=== PATIENT | male | born 1955 | race Caucasian/White ===

== ENCOUNTER 2017-11-10 01:37 | Inpatient (IN) ==
--- NOTE | 2017-11-10 01:50 | Emergency Department Note ---
Disposition Clinical Impression: Healthcare-associated pneumonia, SVT (supraventricular tachycardia) Sepsis Qualifiers: Sepsis type: sepsis due to unspecified organism Qualified Code(s): A41.9 - Sepsis, unspecified organism Respiratory failure Qualifiers: Chronicity: acute Respiratory failure complication: hypoxia Qualified Code(s): J96.01 - Acute respiratory failure with hypoxia Disposition: Admitted As Inpatient Condition: Good Referrals: Nataly Vera [Primary Care Provider] - Forms: ED Satisfaction Letter Arrhythmia/Palpitations HPI - General Chief Complaint: ED Arrhythmia/Palpitations Stated Complaint: High Heart Rate Time Seen by Provider: 11/10/17 01:45 Source: patient Mode of arrival: EMS Limitations: no limitations Nursing Notes Reviewed: Yes Vital Signs Reviewed: Yes - History of Present Illness HPI Narrative: 62-year-old male history of oxygen-dependent COPD who presents to the ER via EMS with a chief complaint of shortness of breath. Patient reports he was admitted last week for pneumonia at another facility. He went home and states that he was improving but then he started getting short of breath yesterday evening. He reports a productive cough during this time. No fevers or chest pain. He has increasingly worsened in terms of shortness of breath. Upon arrival by squad he was noted to be tachycardic at 214 with SVT. Patient was given 6 mg of adenosine and converted to sinus tachycardia. He was noted to be hypoxic on his usual oxygen requirement. Upon arrival he is hemodynamically stable. Patient placed on oxygen mask due to hypoxia on nasal cannula. He denies any fevers, chills, nausea, vomiting, diarrhea. No history of coronary artery disease. No other complaints. Pt Subjective Complaint: rapid heart beat Onset (ago): day(s) Duration: constant Associated symptoms: Reports: shortness of breath, cough. Denies: chest pain, nausea, vomiting - Related Data Home Medications Medication Instructions Recorded Confirmed Albuterol Sulfate [Ventolin Hfa] 2 puff IH Q4H PRN 04/25/16 05/06/16 Canagliflozin [Invokana] 100 mg PO DAILY 04/25/16 05/06/16 Fluticasone/Salmeterol [Advair 1 puff IH BID 04/25/16 05/06/16 250-50 Diskus] Furosemide [Lasix] 40 mg PO DAILY 04/25/16 05/06/16 Labetalol HCl 600 mg PO BID 04/25/16 05/06/16 Metformin HCl [Glucophage] 1,000 mg PO BID 04/25/16 05/06/16 Potassium Chloride [K-Tab ER] 10 meq PO DAILY 04/25/16 05/06/16 Tiotropium [Spiriva] 18 mcg IH DAILY 04/25/16 05/06/16 Verapamil HCl 360 mg PO DAILY 04/25/16 05/06/16 Insulin Lispro Protamin/Lispro 80 units SQ TID 04/29/16 05/06/16 [Humalog Mix 75-25 Vial] Previous Rx's Medication Instructions Recorded Furosemide [Lasix] 60 mg PO BIDDIURETIC 30 Days 05/04/16 tablet predniSONE [PredniSONE] 30 mg PO DAILY 3 Days tablet 05/04/16 Allergies Allergy/AdvReac Type Severity Reaction Status Date / Time No Known Allergies Allergy Verified 11/10/17 01:38 All systems ED: reviewed and negative except as stated. Constitutional: Denies: fever, chills Cardiovascular: Denies: chest pain Respiratory: Reports: cough, dyspnea, sputum production Gastrointestinal: Denies: abdominal pain, nausea, vomiting Past Medical History - Past Medical History Attestation: Yes The following information was validated with the patient. Source: patient Medical history: Reports: asthma, CHF, COPD, diabetes, hyperlipidemia, hypertension, renal disease, SVT Psychiatric history: Reports: no psych history, other - Social History Smoking Status: Former smoker Smokeless Tobacco Status: No Alcohol use: Reports: none Drug use: Reports: none Physical Exam - General Limitations: no limitations General appearance: alert, in no apparent distress - Head Head exam: atraumatic - Eye Eye exam: Present: normal appearance - ENT ENT exam: normal exam - Neck Neck exam: Present: normal inspection, full ROM - Chest Chest inspection: Present: normal inspection, symmetric chest wall rise - Respiratory Respiratory exam: Present: other (Diminished breath sounds bilaterally). Absent : wheezes, stridor - Cardiovascular Cardiovascular exam: Present: normal rhythm, tachycardia, normal heart sounds - Abdominal Exam Abdominal exam: Present: soft, Non-Tender. Absent: tenderness - Extremities Exam Extremities exam: Present: normal inspection, full ROM - Expanded Upper Extremity Exam Shoulder exam: Present: normal inspection, full ROM Arm exam: Present: normal inspection, full ROM Elbow exam: Present: normal inspection, full ROM Forearm/Wrist exam: Present: normal inspection, full ROM Hand exam: Present: normal inspection, full ROM - Expanded Lower Extremity Exam Hip/Pelvis exam: Present: normal inspection, full ROM Upper leg exam: Present: normal inspection, full ROM Knee exam: Present: normal inspection, full ROM Lower leg exam: Present: normal inspection, full ROM Ankle exam: Present: normal inspection, full ROM Foot/toe exam: Present: normal inspection, full ROM - Neurological Exam Neurological exam: Present: alert, other (GCS 15. Answers questions appropriately.) - Skin Skin exam: Present: warm, dry Course Course Narrative: Patient seen and examined the time of arrival. Noted to be tachycardic at roughly 1:30. Blood pressure stable. He is hypoxic on nasal cannula. Patient switched oxine mask with improvement of his oxygenation. We will get a repeat EKG here as well as chest x-ray, labs including troponin, electrolytes, lactate and blood cultures given his recent hospitalization. - Reevaluation(s) Reevaluation #1: Patient continues to have tachypnea on oxygen mask. Patient placed on BiPAP. Discussed with family bedside reports he was on steroids recently. Patient will be given vancomycin and Zosyn and Levaquin for healthcare associated pneumonia. Patient has received 2 L of IV fluids. His lactate is normal and he shows no evidence of shock on exam. We will admit to the hospitalist service for healthcare associated pneumonia. Vital Signs Temperature 99.4 F 11/10/17 01:41 Pulse Rate 126 11/10/17 01:41 Respiratory Rate 28 11/10/17 01:41 Blood Pressure 131/71 11/10/17 01:41 O2 Sat by Pulse Oximetry 96 11/10/17 01:41 Temperature 99.4 F 11/10/17 01:41 Pulse Rate 119 11/10/17 03:45 Respiratory Rate 26 11/10/17 03:45 Blood Pressure 128/63 11/10/17 03:45 O2 Sat by Pulse Oximetry 95 11/10/17 03:45 Oxygen Delivery Oxygen Delivery Bipap Arrhythmia/Palpitations - MDM Narrative Medical decision making narrative: 62-year-old male presents to the ER via EMS due to shortness of breath. He was recently hospitalized last week for pneumonia. Family states he just went home within the week. EMS found the patient to be in SVT with a rate of 214. He was given 6 mg of adenosine with abatement of his dysrhythmia. No prior history of arrhythmia in the past. He was noted to be hypoxic upon arrival on his usual oxygen requirement. Patient eventually was placed on BiPAP. EKG without ischemic findings here. Chest x-ray with by basilar pneumonia worse on the left. He is noted to have a leukocytosis in the setting of pneumonia as well as recent steroid administration. Lactate normal. Cultures obtained. Started on broad-spectrum antibiotics including vancomycin and Zosyn and Levaquin given his recent hospitalization. Patient was given 20 mL/kg bolus of IV fluids in the department. He is admitted to the hospitalist service in guarded but stable condition. - Lab Data Lab results reviewed: Yes I reviewed the patient's lab results. Result diagrams: 11/10/17 01:55 11/10/17 01:55 Lab Results 11/10/17 11/10/17 11/10/17 Range/Units 01:55 01:55 01:55 WBC 26.4 H (4.3-11.1) K/mcL RBC 5.09 (4.19-5.50) M/mcL Hgb 15.4 (12.9-16.9) g/dL Hct 48.3 (37.5-50.1) % MCV 94.9 (83.0-100.0) fL MCH 30.3 (28.0-33.3) pg MCHC 31.9 (31.6-35.5) g/dL RDW 12.3 (11.5-14.5) % Plt Count 139 L (140-400) K/mcL MPV 9.6 (9.4-12.4) fL Immature Gran % 1.5 (0-4) % Seg Neutrophils % 88.5 % Lymphocytes % 3.1 % Monocytes % 6.6 % Eosinophils % 0.1 % Basophils % 0.2 % Neutrophils # 23.4 H (1.6-8.9) K/mcL Lymphocytes # 0.8 (0.6-4.6) K/mcL Monocytes # 1.7 H (0.0-1.3) K/mcL Eosinophils # 0.0 (0.0-0.6) K/mcL Basophils # 0.1 (0.0-0.2) K/mcL Hyposegmented Neuts Present A (Not Present) Reactive Lymphocytes Present A (Not Present) Smudge Cells Present A (Not Present) Platelet Estimate Normal (Normal) PT 10.6 (9.4-12.1) Seconds INR 1.0 APTT 27.8 (26.0-36.0) Seconds Sodium 138 (136-145) mEq/L Potassium 4.3 (3.5-5.1) mEq/L Chloride 96 L (98-107) mEq/L Carbon Dioxide 30 H (23-29) mEq/L BUN 10 (8-23) mg/dL Creatinine 0.46 L (0.70-1.30) mg/dL Est GFR ( Amer) > 60 (> 60) Est GFR (Non-Af Amer) > 60 (> 60) BUN/Creatinine Ratio 22 (6-26) Glucose 231 H (70-105) mg/dL Calculated Osmolality 292 (280-300) Lactic Acid (0.5-2.2) mmol/L Calcium 9.1 (8.6-10.3) mg/dL Phosphorus 3.1 (2.7-4.5) mg/dL Magnesium 1.9 (1.6-2.6) mg/dL Total Bilirubin 1.2 H (0.3-1.0) mg/dL Direct Bilirubin 0.2 (0.0-0.2) mg/dL Indirect Bilirubin 1.0 (0.0-1.2) mg/dL AST 8 L (13-39) Units/L ALT 11 (7-52) Units/L Alkaline Phosphatase 70 (34-104) Units/L Troponin I (< 0.04) ng/mL B-Natriuretic Peptide (Less than 100) pg/mL Serum Total Protein 6.4 (6.4-8.9) g/dL Albumin 3.8 (3.5-5.7) g/dL Globulin 2.6 (2.4-3.5) g/dL Albumin/Globulin Ratio 1.5 (1.1-2.2) 11/10/17 11/10/17 11/10/17 Range/Units 01:55 01:55 01:55 WBC (4.3-11.1) K/mcL RBC (4.19-5.50) M/mcL Hgb (12.9-16.9) g/dL Hct (37.5-50.1) % MCV (83.0-100.0) fL MCH (28.0-33.3) pg MCHC (31.6-35.5) g/dL RDW (11.5-14.5) % Plt Count (140-400) K/mcL MPV (9.4-12.4) fL Immature Gran % (0-4) % Seg Neutrophils % % Lymphocytes % % Monocytes % % Eosinophils % % Basophils % % Neutrophils # (1.6-8.9) K/mcL Lymphocytes # (0.6-4.6) K/mcL Monocytes # (0.0-1.3) K/mcL Eosinophils # (0.0-0.6) K/mcL Basophils # (0.0-0.2) K/mcL Hyposegmented Neuts (Not Present) Reactive Lymphocytes (Not Present) Smudge Cells (Not Present) Platelet Estimate (Normal) PT (9.4-12.1) Seconds INR APTT (26.0-36.0) Seconds Sodium (136-145) mEq/L Potassium (3.5-5.1) mEq/L Chloride (98-107) mEq/L Carbon Dioxide (23-29) mEq/L BUN (8-23) mg/dL Creatinine (0.70-1.30) mg/dL Est GFR ( Amer) (> 60) Est GFR (Non-Af Amer) (> 60) BUN/Creatinine Ratio (6-26) Glucose (70-105) mg/dL Calculated Osmolality (280-300) Lactic Acid 0.9 (0.5-2.2) mmol/L Calcium (8.6-10.3) mg/dL Phosphorus (2.7-4.5) mg/dL Magnesium (1.6-2.6) mg/dL Total Bilirubin (0.3-1.0) mg/dL Direct Bilirubin (0.0-0.2) mg/dL Indirect Bilirubin (0.0-1.2) mg/dL AST (13-39) Units/L ALT (7-52) Units/L Alkaline Phosphatase (34-104) Units/L Troponin I < 0.03 (< 0.04) ng/mL B-Natriuretic Peptide 30 (Less than 100) pg/mL Serum Total Protein (6.4-8.9) g/dL Albumin (3.5-5.7) g/dL Globulin (2.4-3.5) g/dL Albumin/Globulin Ratio (1.1-2.2) - Radiology Data Radiology results reviewed: Yes I reviewed the patient's radiology results. Chest X-Ray 11/10/17 01:46 IMPRESSION: Bibasilar opacities, greater on the left. Findings are suspicious for pneumonia. D/ / Robin Nayak MD / Robin Nayak MD Interpreting Provider: Robin Nayak MD - EKG Data EKG attestation: Yes I reviewed and interpreted this EKG. EKG results narrative: EKG demonstrates sinus tachycardia with a rate of 127. Normal axis. Normal intervals. Normal R-wave progression. No gross ST elevations or depressions. No acute ischemic findings. No significant changes from previous EKG dated 11/10 with the exception of rate. Critical Care Time Critical Care Time: Yes Total Critical Care Time: 45 Attestation: Critical care performed: Time is exclusive of separately billable procedures. Time includes: direct patient care, patient reassessment, coordination of patient care, interpretation of data (laboratory data, radiology data, and respiratory data), review of patient's medical records, medical consultation and documentation of patient care. Procedures included in critical care time: Procedures excluded from critical care time: S.B.A.R. - S.B.A.R. Situation: Demographics, MOA Background: Presenting Complaint, Relevant PMH, Meds, & Allergies Assessment: Vital Signs, Course and respsone to treatment, Exam Concerns, Patient/Family Expectation, Pertinant Lab Results Recommendation: Barrier(s) to disposition, Recommendation based on pending studies, treatments, or consults S.B.A.R. Report Given to: Dr. Cohen Attestation Statement - Attestation Attestation: I, Chaz Irvin MD, personally evaluated this patient and discussed their management with the resident physician. I reviewed the resident's note and agree with the documented findings, medical decision making, and plan of care. 62-year-old male presents to the emergency department by EMS with a complaint of increased shortness of breath since earlier this evening. He denies any chest pain. EMS reports that on their arrival the patient's heart rate was 214. He received adenosine with resolution of his SVT. On arrival here the heart rate was around 130. Patient has a history of COPD and does wear oxygen at home that 3-1/2 L. Does complain of a productive cough with some greenish brown sputum. No fever. On examination patient is a well-developed well-nourished male in mild to moderate respiratory distress. He is alert. There is no cyanosis or diaphoresis. Chest is nontender to palpation. Breath sounds are markedly decreased bilaterally. No rales or wheezes noted. Heart is regular with a moderate tachycardia. Abdomen is soft and nontender with normal bowel sounds. Patient's oxygen saturation here was 88% on oxygen by nasal cannula. He was placed on a facemask with some improvement into the mid 90s. He continued to be working hard to breathe so he was placed on BiPAP with significant improvement in his symptoms. Labs reviewed. Chest x-ray showed bibasilar airspace disease, left greater than right, concerning for pneumonia. EKG shows a sinus tachycardia with a heart rate of 127. The hospitalist, Dr. Cohen, was consulted and accepted admission of the patient.
[2017-11-10 02:03] LABS: Basophils % 0.2 %; Eosinophils % 0.1 %; Immature Granulocytes % 1.5 % (0-4); Lymphocytes % 3.1 %; Red Cell Distribution Width 12.3 % (11.5-14.5)
[2017-11-10 02:04] LABS: Basophils # 0.1 K/mcL (0.0-0.2); Hematocrit 48.3 % (37.5-50.1); Hemoglobin 15.4 g/dL (12.9-16.9); Lymphocytes # 0.8 K/mcL (0.6-4.6); Mean Corpuscular HGB Conc 31.9 g/dL (31.6-35.5); Mean Corpuscular Hemoglobin 30.3 pg (28.0-33.3); Mean Corpuscular Volume 94.9 fL (83.0-100.0); Mean Platelet Volume 9.6 fL (9.4-12.4); Monocytes % 6.6 %; Neutrophils # 23.4 K/mcL (1.6-8.9); Platelet Count 139 K/mcL (140-400); Red Blood Count 5.09 M/mcL (4.19-5.50); Segmented Neutrophils % 88.5 %
[2017-11-10 02:06] LABS: Monocytes # 1.7 K/mcL (0.0-1.3)
[2017-11-10] MEDS ORDERED: Vancomycin 1,250 MG in D5% in Water 250 ML IVPB ONE (02:07)
[2017-11-10] MEDS ORDERED: Levofloxacin 750 MG/150 ML 750 MG/150 ML BAG IVPB ONE (02:07)
[2017-11-10] MEDS ORDERED: Piperacillin/Tazobactam 3.375 GM in Water for inj. (sterile) 20 ML IVP ONE (02:07)
[2017-11-10 02:12] LABS: Prothrombin Time 10.6 Seconds (9.4-12.1)
[2017-11-10 02:14] LABS: Activated Partial Thrombo Time 27.8 Seconds (26.0-36.0)
[2017-11-10] MEDS: 0.9 % Sodium Chloride 1,000 ML IVC SCH ×2 (02:21→02:50)
[2017-11-10 02:24] LABS: Alanine Aminotransferase 11 Units/L (7-52); Albumin 3.8 g/dL (3.5-5.7); Albumin/Globulin Ratio 1.5 (1.1-2.2); Alkaline Phosphatase 70 Units/L (34-104); Aspartate Amino Transferase 8 Units/L (13-39); BUN/Creatinine Ratio 22 (6-26); Bilirubin,Direct 0.2 mg/dL (0.0-0.2); Bilirubin,Total 1.2 mg/dL (0.3-1.0); Blood Urea Nitrogen 10 mg/dL (8-23); Calcium 9.1 mg/dL (8.6-10.3); Carbon Dioxide 30 mEq/L (23-29); Chloride 96 mEq/L (98-107); Globulin 2.6 g/dL (2.4-3.5); Glucose 231 mg/dL (70-105); Magnesium 1.9 mg/dL (1.6-2.6); Osmolality,Calculated 292 (280-300); Phosphorous 3.1 mg/dL (2.7-4.5); Potassium 4.3 mEq/L (3.5-5.1); Sodium 138 mEq/L (136-145); Total Protein 6.4 g/dL (6.4-8.9); eGFR For African Americans > 60 (> 60); eGFR For Non-African Americans > 60 (> 60)
[2017-11-10 02:35] LABS: Platelet Estimate Normal (Normal); Reactive Lymphocytes Present (Not Present); Smudge Cells Present (Not Present)
[2017-11-10] MEDS ORDERED: Levalbuterol Neb 1.25 MG/3 ML IH PRN (04:57)
[2017-11-10] MEDS: Levalbuterol Neb 1.25 MG/3 ML IH SCH ×2 (05:05→10:56)
[2017-11-10] MEDS ORDERED: *HR* Dextrose 50 % in Water (Syg) 50 ML SYRINGE IVP PRN (05:40)
[2017-11-10] MEDS ORDERED: Naloxone 0.4 MG/ML INJ IVP PRN (05:40)
[2017-11-10] MEDS ORDERED: D5% in Water 1,000 ML IVC PRN (05:40)
[2017-11-10] MEDS ORDERED: Dextrose Gel 15 GM/37.5 ML TUBE PO PRN ×2 (05:40)
[2017-11-10 05:48] LABS: ABG Base Excess 2 mEq/L (-2 to 3); ABG HCO3 33 mEq/L (21-27); ABG Oxygen Saturation 94 % (95-98); ABG PCO2 82 mmHg (35-45); ABG PH 7.21 pH Units (7.32-7.45); ABG PO2 91 mmHg (85-104); ABG TCO2 36 mEq/L (20-26)
--- NOTE | 2017-11-10 05:58 | Internal Med History&Physical ---
Date of Encounter: 11/10/17 Time of Encounter: 05:15 Assessment and Plan (1) Healthcare-associated pneumonia Current visit: Yes Status: Acute 1. I requested blood culture be obtained in ER when they called. 2. Will try to collect sputum culture. 3. Continue IV Vancomycin, Zosyn, and Levaquin. 4. Will schedule Xopenex aerosols and IV steroids for AECOPD. (2) SVT (supraventricular tachycardia) Current visit: Yes Status: Acute 1. Patient responded to Adenosine by EMS. 2. Awaiting verification of home meds at which point they should be resumed. 3. Monitor electrolytes and correct as needed. 4. May need BB and/or Cardizem if he has more runs. 5. Cycle troponins and EKG's. (3) Acute on chronic respiratory failure with hypercapnia Current visit: No Status: Acute 1. I spoke with RT, and they are making changes to his BiPap settings. 2. Repeat ABG in 1 hour. 3. If he fails Bipap and/or decompensates, he will need intubated and mechanically ventilated. (4) DVT prophylaxis Current visit: Yes Status: Acute 1. Heparin SQ. Internal Medicine - H&P: HPI Chief complaint: SOB; palpitations Admitted From: Emergency Dept Plans for Post Hospital Care: Home History of present illness: Mr. Miller is a 62 year old male who presents to the ER tonight with complaints of profound dyspnea, palpitations, and racing heartbeats. He called the squad for complaints of having significant difficulty breathing and racing heartbeats. An EKG was performed by EMS, and he was noted to have SVT with a heart rate in the 200s. He was apparently given a dose of adenosine and brought to the ER. He slowed down and converted with adenosine. Workup in the ER revealed patient to have evidence of pneumonia and respiratory failure. He was started on antibiotics and aerosols and placed on BiPAP. He was subsequently admitted to the hospitalist service. Upon my assessment of the patient, he is in moderate distress, but he says he is tolerating the BiPAP fairly well. He states he feels better on the BiPAP machine. He denies any fevers, nausea, vomiting, diarrhea, or myalgias. He has had some shakes and chills,. He has not been able to produce any purulent sputum upon coughing. He is wheezing audibly. He denies any ill contacts with friends or neighbors or family members. Of note, patient was just hospitalized last week at [facility] for pneumonia. Past Med Surg Social Fam HX - Past Medical History Attestation: Yes The following information was validated with the patient. Source: patient, old records reviewed Medical history: asthma, CHF, COPD, diabetes, hyperlipidemia, hypertension, renal disease, SVT Psychiatric history: no psych history, other - Past Surgical History Surgical History: other, AICD - Social History Smoking Status: Former smoker Smokeless Tobacco Status: No Alcohol use: none Drug use: none Current living situation: Home, With Family Activity Level: Independent ambulation - Family History Mother Hx Family Endocrine Disorder: Yes Father History Unknown: Yes Internal Medicine - H&P: Meds Albuterol Sulfate [Ventolin Hfa] 2 puff IH Q4H PRN 04/25/16 [History] Canagliflozin [Invokana] 100 mg PO DAILY 04/25/16 [History] Fluticasone/Salmeterol [Advair 250-50 Diskus] 1 puff IH BID 04/25/16 [History] Furosemide [Lasix] 40 mg PO DAILY 04/25/16 [History] Labetalol HCl 600 mg PO BID 04/25/16 [History] Metformin HCl [Glucophage] 1,000 mg PO BID 04/25/16 [History] Potassium Chloride [K-Tab ER] 10 meq PO DAILY 04/25/16 [History] Tiotropium [Spiriva] 18 mcg IH DAILY 04/25/16 [History] Verapamil HCl 360 mg PO DAILY 04/25/16 [History] Insulin Lispro Protamin/Lispro [Humalog Mix 75-25 Vial] 80 units SQ TID [History] Furosemide [Lasix] 60 mg PO BIDDIURETIC 30 Days tablet 05/04/16 [Rx] predniSONE [PredniSONE] 30 mg PO DAILY 3 Days tablet 05/04/16 [Rx] 3 Allergy/AdvReac Type Severity Reaction Status Date / Time No Known Allergies Allergy Verified 11/10/17 01:38 - Constitutional Constitutional: chills, night sweats, weakness, no fever(s) - EENT Eyes: no blurry vision, no change in vision Ears: no ear pain, no tinnitus Nose, mouth and throat: no nasal congestion, no sinus pressure, no sore throat - Cardiovascular Cardiovascular ROS IM: diaphoresis, dyspnea, dyspnea on exertion, palpitations, no chest pain, no paroxysmal nocturnal dyspnea, no syncope - Respiratory Respiratory: cough, dyspnea, dyspnea on exertion, wheezing, chest congestion, excessive phlegm production, change in phlegm color, no hemoptysis - Gastrointestinal Gastrointestinal: nausea, no abdominal pain, no diarrhea, no hematemesis, no hematochezia, no melena, no vomiting - Genitourinary Genitourinary ROS male: no dysuria, no flank pain, no hematuria - Musculoskeletal Musculoskeletal ROS IM: muscle weakness, no arthralgias, no muscle cramps, no myalgias - Integumentary Integumentary IM: no rash, no jaundice - Neurological Neurological ROS: no dizziness, no focal weakness, no frequent falls, no headache(s) - Psychiatric Psychiatric: no anxiety, no depression - Endocrine Endocrine IM: no polydipsia, no polyuria - Hematologic/Lymphatic Hematologic/Lymphatic: easy bruising, no lymphadenopathy - Allergic/Immunologic Allergic/Immunologic: wheezing, no GI upset with certain foods - Constitutional Vitals: Temp Pulse Resp BP Pulse Ox 97.4 F L 130 18 140/66 94 11/10/17 04:45 11/10/17 04:45 11/10/17 05:07 11/10/17 04:45 11/10/17 05:07 General appearance: Present: cooperative, A&O X 3, pleasant, severe distress ( respiratory), answers questions appropriately - Head Head exam: Present: atraumatic, normal inspection - Eye Eye exam: Present: EOMI, normal appearance, PERRL. Absent: scleral icterus Pupils: Present: normal accommodation - ENT ENT exam: Present: mucous membranes dry, normal exam - Neck Neck exam general surgery: Present: full ROM, supple. Absent: tenderness, nuchal rigidity - Respiratory Respiratory exam: Present: prolonged expiratory phase (severely prolonged), rales, respiratory distress, rhonchi, wheezes, tachypnea. Absent: accessory muscle use, CTAB - Cardiovascular Cardiovascular exam: Present: distant heart sounds, +S1, +S2, tachycardia. Absent: diastolic murmur, systolic murmur - GI/Abdominal GI/Abdominal exam: Present: normal bowel sounds, soft. Absent: hepatomegaly, mass, splenomegaly, tenderness - Extremities Exam Extremities exam: Present: full ROM. Absent: calf tenderness, joint swelling, normal capillary refill - Back Exam Back exam: Absent: CVA tenderness (L), CVA tenderness (R) - Neurological Exam Neurological exam: Present: alert, CN II-XII intact, oriented X3, no focal deficits - Psychiatric Psychiatric exam: Present: normal affect, normal mood - Skin Skin exam: Present: dry, warm. Absent: rash Internal Med - H&P Results - Labs CBC & Chem 7: 11/10/17 01:55 11/10/17 01:55 - ABG Interpretation Interpretation: ABG interpreted by me ABG results: 11/10/17 05:34 ABG pH 7.21 L ABG pCO2 82 H* ABG pO2 91 ABG HCO3 33 H ABG Total CO2 36 H ABG O2 Saturation 94 L ABG Base Excess 2 Interpretation: metabolic acidosis - EKG Data -: EKG Interpreted by Myself - EKG Data EKG comments: 11/10/17 06:05 Sinus tachycardia; earlier EKG revealed SVT.
[2017-11-10] MEDS ORDERED: Vancomycin 1,250 MG in D5% in Water 250 ML IVPB SCH (06:00)
[2017-11-10] MEDS: *HR* Heparin 5,000 UNIT/ML VIAL SQ SCH ×2 (06:51→16:18)
[2017-11-10 07:02] LABS: ABG Base Excess 5 mEq/L (-2 to 3); ABG HCO3 35 mEq/L (21-27); ABG Oxygen Saturation 91 % (95-98); ABG PCO2 78 mmHg (35-45); ABG PH 7.26 pH Units (7.32-7.45); ABG PO2 72 mmHg (85-104); ABG TCO2 37 mEq/L (20-26); Blood Gas Respiration Rate 10; Blood Gas VT 550 cc
[2017-11-10] MEDS ORDERED: *HR* Adenosine 6 MG/2 ML VIAL IVP ONE ×3 (07:50→08:04)
[2017-11-10] MEDS ORDERED: 0.9 % Sodium Chloride 1,000 ML ONE (07:55)
[2017-11-10] MEDS ORDERED: methylPREDNISolone 125 MG/2 ML VIAL IVP SCH (08:00)
[2017-11-10] MEDS ORDERED: *HR* Metoprolol 5 MG/5 ML VIAL IVP ONE ×2 (08:04→08:19)
[2017-11-10] MEDS ORDERED: *HR* LORazepam 2 MG/ML VIAL ONE (08:11)
--- NOTE | 2017-11-10 08:19 | Event Note ---
Date of Encounter: 11/10/17 Time of Encounter: 08:15 I was called by the patient's nurse this morning as he had sustained SVT on the monitor. Anywhere between 180 to 220s. The patient was admitted overnight for healthcare associated pneumonia and COPD exacerbation and has been maintained on BiPAP. He is chronically O2 dependent with about 3.5 L. When I went to evaluate the patient has blood pressure was not elevated with a systolic in the 180s and diastolic in the 100. The patient was given 6 mg of IV adenosine followed by 12 mg of IV adenosine with no response. He was eventually given 5 mg of Lopressor which brought down his heart rate to the low 100s-110s. I consulted with cardiology. We will give the patient 500 mL bolus. I have asked the pharmacy to verify his medications as it seems that he is taking a beta jeanmarie at home. We will restart home medications after they are verified. Unfortunately 5 minutes after I had left the room, the patient again went into SVT with similar rates. I gave him 5 more milligrams of IV Lopressor which did not help. I gave 2 consecutive 5 mg of IV Cardizem and after the second dose this week he broke. Dr. Jean from cardiology had just walked in right after the patient had converted to sinus rhythm with a rate in the 90s. He will be following along as a outbound sales consultant. I do not appreciate him come in to help out.
[2017-11-10] MEDS: Insulin LISPRO 300 UNITS/3 ML VIAL SQ SCH ×3 (09:42→16:18)
[2017-11-10 11:22] LABS: ABG Base Excess 3 mEq/L (-2 to 3); ABG HCO3 34 mEq/L (21-27); ABG Oxygen Saturation 90 % (95-98); ABG PCO2 86 mmHg (35-45); ABG PH 7.21 pH Units (7.32-7.45); ABG PO2 75 mmHg (85-104); ABG TCO2 37 mEq/L (20-26)
--- NOTE | 2017-11-10 11:31 | Pulmonology Consult Note ---
Date of Encounter: 11/10/17 Time of Encounter: 11:30 Assessment and Plan (1) Acute and chronic respiratory failure with hypoxia Current Visit: No Status: Acute Patient has acute on chronic hypoxic and hypercapnic respiratory failure now currently AVAPS with Pressure Support of 10 with Target Tidal volume around 600 ml to keep the FIO2 with aiming stats around 92% (2) Acute on chronic respiratory failure with hypercapnia Current Visit: No Status: Acute With the initial bicarbonate around 30 confirms that he has acute on chronic hypercapnic respiratory failure most likely due to combination of V/Q mismatch and space ventilation the gas exchange improved initially with mentation , the repeat gas showed some worsening hypercarbia most likely due to bronchospasm because the tidal volume is not effectively delivered that is the main reason will add Scheduled Duonebs Q4 with Albuterol Q4 prn will repeat the blood gas after bronchodilator treatment if the mentation improves with improvement with adequate compensated gas exchange will leave him to 2N if any signs of metabolic or clinical decline will shift him to the ICU . (3) Acute exacerbation of chronic obstructive airways disease Current Visit: No Status: Acute Patient presenting with acute exacerbation of COPD most likely secondary to bacterial pneumonia of unspecified organism will send blood and sputum cultures . Since his recent hospitalization will cover him with broad spectrum antibiotics . agree with steroids , i added scheduled BOOGIE/MARTIN with BOOGIE prn will need to monitor his heart rate . Wonder he is aspirating will need full swallow evaluation when he is stable . If clinically not improving will get a CTA as the kidney function is stable for now . But wont shift him now for any imaging as his respiratory status is borderline. (4) Pneumonia Current Visit: Yes Status: Acute Can be due to aspiration suspected bacterial pneumonia agree with broad spectrum antibiotics will follow with blood culture and sputum cultures . Will get respiratory infection panel to rule out for any viral pneumonia . Qualifiers: Pneumonia type: due to unspecified organism Laterality: left Lung location: lower lobe of lung Qualified Code(s): J18.1 - Lobar pneumonia, unspecified organism (5) SVT (supraventricular tachycardia) Current Visit: Yes Status: Acute Most likely secondary to COPD exacerbation appreciate cardiology input. History of Present Illness Consult date: 11/10/17 Requesting physician: Kristin Austin Reason for consult: dyspnea, cough, COPD Chief complaint: Dyspnea History of present illness: 62 year old male with past medical history of COPD looks like he is O2 dependent no PFTS on file not established with [place] [facility] patient is on BIPAP drowsy as he got some ativan not able to participate in history most of the history was taken from the chart review apparently patient was treated for pneumonia in a OSH recently, was discharged home was getting better initially then his shortness of breadth got worsened over couple of days with some cough and sputum production no chest pain , patient was brought in by EMS was hypoxic and hypercarbic was in SVT , the ABG showed acute on chronic hypercapnic and hypoxic respiratory failure was put on BIPAP admitted to [facility] Pulmonary was consulted for further management and triage whether patient will need ICU care or not . Past Med Surg Social Fam HX - Past Medical History Medical history: asthma, CHF, COPD, diabetes, hyperlipidemia, hypertension, renal disease, SVT Psychiatric history: no psych history, other - Past Surgical History Surgical History: other, AICD - Social History Smoking Status: Former smoker Smokeless Tobacco Status: No Alcohol use: none Drug use: none - Family History Father History Unknown: Yes Mother Hx Family Endocrine Disorder: Yes Medications and Allergies Albuterol Sulfate [Ventolin Hfa] 2 puff IH Q4H PRN 04/25/16 [History] Canagliflozin [Invokana] 300 mg PO DAILY 04/25/16 [History] Fluticasone/Salmeterol [Advair 250-50 Diskus] 1 puff IH BID 04/25/16 [History] Furosemide [Lasix] 40 mg PO BID 04/25/16 [History] Metformin HCl [Glucophage] 1,000 mg PO BID 04/25/16 [History] Potassium Chloride [K-Tab ER] 10 meq PO DAILY 04/25/16 [History] Verapamil HCl 360 mg PO DAILY 04/25/16 [History] Aclidinium [place] [Tudorza Pressair] 1 puff IH DAILY 11/10/17 [History] Apixaban [Eliquis] 5 mg PO BID 11/10/17 [History] Atorvastatin [Lipitor] 80 mg PO HS 11/10/17 [History] Glimepiride [Amaryl] 1 mg PO DAILY 11/10/17 [History] Insulin Glargine,Hum.rec.anlog [Maksim Echeverria] 60 units SQ HS 11/10/17 [ History] Ipratropium/Albuterol Neb [Duoneb] 1 inh AER Q4HWA 11/10/17 [History] Lisinopril-HCTZ 10-12.5 [Prinzide 10-12.5] 1 tab PO DAILY 11/10/17 [History] Metoprolol [Lopressor] 50 mg PO BID 11/10/17 [History] 3 Allergy/AdvReac Type Severity Reaction Status Date / Time No Known Allergies Allergy Verified 11/10/17 01:38 ROS unobtainable: due to mental status All Systems: A 10-system review of systems was performed and is negative for pertinent findings except as documented above in the HPI. Physical Examination Vital Signs: Vital Signs, Last 4 Hours Pulse Resp BP Pulse Ox 11/10/17 10:56 15 93 11/10/17 09:57 101 32 124/77 92 11/10/17 09:34 107 29 119/65 93 11/10/17 07:37 172 General appearance: other (mild respiratory distress ) Effort: mildly labored Auscultation: bilateral: diminished breath sounds, wheezes unable to assess due to mental status, other (Patient is arousable on and off followed commands ) Results - Laboratory Findings CBC and BMP: 11/10/17 01:55 11/10/17 01:55 ABG ABG pH 7.21 pH Units (7.32-7.45) L 11/10/17 11:16 ABG pCO2 86 mmHg (35-45) H* 11/10/17 11:16 ABG pO2 75 mmHg (85-104) L 11/10/17 11:16 ABG O2 Saturation 90 % (95-98) L 11/10/17 11:16 PT/INR, D-dimer PT 10.6 Seconds (9.4-12.1) 11/10/17 01:55 Abnormal lab findings: Abnormal lab results WBC 26.4 K/mcL (4.3-11.1) H 11/10/17 01:55 Plt Count 139 K/mcL (140-400) L 11/10/17 01:55 Neutrophils # 23.4 K/mcL (1.6-8.9) H 11/10/17 01:55 Monocytes # 1.7 K/mcL (0.0-1.3) H 11/10/17 01:55 Hyposegmented Neuts Present (Not Present) A 11/10/17 01:55 Reactive Lymphocytes Present (Not Present) A 11/10/17 01:55 Smudge Cells Present (Not Present) A 11/10/17 01:55 ABG pH 7.21 pH Units (7.32-7.45) L 11/10/17 11:16 ABG pCO2 86 mmHg (35-45) H* 11/10/17 11:16 ABG pO2 75 mmHg (85-104) L 11/10/17 11:16 ABG HCO3 34 mEq/L (21-27) H 11/10/17 11:16 ABG Total CO2 37 mEq/L (20-26) H 11/10/17 11:16 ABG O2 Saturation 90 % (95-98) L 11/10/17 11:16 Chloride 96 mEq/L (98-107) L 11/10/17 01:55 Carbon Dioxide 30 mEq/L (23-29) H 11/10/17 01:55 Creatinine 0.46 mg/dL (0.70-1.30) L 11/10/17 01:55 Glucose 231 mg/dL (70-105) H 11/10/17 01:55 POC Glucose 166 (58-89) H 11/10/17 07:24 Total Bilirubin 1.2 mg/dL (0.3-1.0) H 11/10/17 01:55 AST 8 Units/L (13-39) L 11/10/17 01:55 - Clinical Findings Intake & Output: Intake & Output 11/09/17 11/10/17 11/10/17 23:59 07:59 15:59 Intake Total 500 / 500 Output Total 300 / 640 300 / 300 Balance -300 / 1780 200 / 200 Consult Discharge Plan - Plan Referrals: Nataly Vera [Primary Care Provider] - 11/24/17 8:40 am
[2017-11-10] MEDS: Ipratropium/Albuterol Neb 3 ML IH SCH ×3 (11:36→20:46)
--- NOTE | 2017-11-10 11:37 | Cardiology Consult Note ---
Date of Encounter: 11/10/17 Time of Encounter: 11:35 Assessment and Plan (1) PSVT (paroxysmal supraventricular tachycardia) Current Visit: Yes Status: Acute PSVT in the setting of acute on chronic respiratory insufficiency. Likely acute exacerbation of COPD and possible pneumonia as well. Patient demonstrated similar findings in 2016, at which time he had SVT in the setting of similar pulmonary issues. Recommend Cardizem CD 120 mg daily. Recommend aspirin for primary prevention. Hopefully, he will have less SVT as pulmonary status improves. Discussion w patient/family: The assessment and plan as outlined above was discussed with the patient and/or family members who expressed understanding and agreement. All questions were answered. Thank you for involving us in the care of your patient. Please call with any questions. History of Present Illness Consult date: 11/10/17 Requesting physician: Kristin Austin Consult reason: SVT Chief complaint: Dyspnea History of present illness: Mr. Miller is a 62 year old male who presented to the ER with a chief complaint dyspnea. Recently discharged from another facility after being treated for pneumonia. Noted to have SVT in route to the hospital. He was given 6 mg of adenosine with conversion to sinus tachycardia. This morning, patient reportedly developed SVT again. He was given 6 mg followed by 12 mg of adenosine without success. After additional Lopressor and Cardizem, patient converted to sinus tachycardia. Upon my evaluation, patient with noticeable dyspnea. He is currently on CPAP. Difficult to obtain history - given Ativan, somewhat somnolent. Blood pressure appears to be stable. Past Med Surg Social Fam HX - Past Medical History Medical history: asthma, CHF, COPD, diabetes, hyperlipidemia, hypertension, renal disease, SVT Psychiatric history: no psych history, other - Past Surgical History Surgical History: other, AICD - Social History Smoking Status: Former smoker Smokeless Tobacco Status: No Alcohol use: none Drug use: none - Family History Father History Unknown: Yes Mother Hx Family Endocrine Disorder: Yes Medications and Allergies Albuterol Sulfate [Ventolin Hfa] 2 puff IH Q4H PRN 04/25/16 [History] Canagliflozin [Invokana] 100 mg PO DAILY 04/25/16 [History] Fluticasone/Salmeterol [Advair 250-50 Diskus] 1 puff IH BID 04/25/16 [History] Furosemide [Lasix] 40 mg PO DAILY 04/25/16 [History] Labetalol HCl 600 mg PO BID 04/25/16 [History] Metformin HCl [Glucophage] 1,000 mg PO BID 04/25/16 [History] Potassium Chloride [K-Tab ER] 10 meq PO DAILY 04/25/16 [History] Tiotropium [Spiriva] 18 mcg IH DAILY 04/25/16 [History] Verapamil HCl 360 mg PO DAILY 04/25/16 [History] Insulin Lispro Protamin/Lispro [Humalog Mix 75-25 Vial] 80 units SQ TID [History] Furosemide [Lasix] 60 mg PO BIDDIURETIC 30 Days tablet 05/04/16 [Rx] predniSONE [PredniSONE] 30 mg PO DAILY 3 Days tablet 05/04/16 [Rx] 3 Allergy/AdvReac Type Severity Reaction Status Date / Time No Known Allergies Allergy Verified 11/10/17 01:38 ROS unobtainable: other All Systems Review: Patient given sedation, somewhat somnolent. - Cardiovascular Cardiovascular: as per HPI - Respiratory Respiratory: dyspnea Physical Examination Vital Signs, Last 4 Hours Pulse Resp BP Pulse Ox 11/10/17 10:56 15 93 11/10/17 09:57 101 32 124/77 92 11/10/17 09:34 107 29 119/65 93 11/10/17 07:37 172 General: Other (Somnolent.) HEENT: Atraumatic, Normocephaly, Mucus Membranes Moist Neck: No JVD, Normal carotid pulses Cardiac: Other (Tachycardic, distant. No appreciable murmurs.) Lungs: Other (Shallow, scattered rhonchi.) Neuro: Other (Somnolent.) Abdomen: Soft, Non-Tender Skin: No rashes noted on visualized skin Musculoskeletal: No Chest Wall Tenderness Extremities: No Clubbing, No Cyanosis, No Edema Results 11/10/17 01:55 11/10/17 01:55 Lab Results 11/10/17 06:31 Troponin I 0.03 - Imaging and Cardiology Echo: report reviewed Consult Discharge Plan - Plan Referrals: Nataly Vera [Primary Care Provider] - 11/24/17 8:40 am
[2017-11-10] MEDS: Diltiazem CD (24hr) 120 MG CAPSULE PO SCH (13:54)
[2017-11-10] MEDS: Vancomycin 1,250 MG in D5% in Water 250 ML IVPB SCH (13:54)
--- NOTE | 2017-11-10 14:37 | Electrocardiograph Report ---
[place] [id number] Test Date: 2017-11-10 Pat Name: Armen Miller Department: [id number] Room: 2N05 Gender: M Dancing Teacher: : 1955 Requested By: Grant Fair Order Number: [id number] Reading MD: Claudio Jean DO Measurements Intervals [place] Rate: 127 P: 47 CA: 128 QRS: 51 QRSD: 87 T: 108 QT: 335 QTc: 410 Interpretive Statements SINUS TACHYCARDIA NONSPECIFIC ST-T CHANGES Electronically Signed On 11-10-2017 14:35:40 EST by Claudio Jean DO
[2017-11-10 15:49] LABS: ABG Base Excess 0 mEq/L (-2 to 3); ABG HCO3 28 mEq/L (21-27); ABG Oxygen Saturation 94 % (95-98); ABG PCO2 62 mmHg (35-45); ABG PH 7.27 pH Units (7.32-7.45); ABG PO2 83 mmHg (85-104); ABG TCO2 30 mEq/L (20-26)
[2017-11-10] MEDS: methylPREDNISolone 125 MG/2 ML VIAL IVP SCH (15:53)
[2017-11-10] MEDS: Furosemide 40 MG TABLET PO SCH (15:54)
[2017-11-10] MEDS ORDERED: Perflutren Lipid Microsphere 1.3 ML in 0.9 % Sodium Chloride 8.7 ML IVP ONE (21:47)
[2017-11-11] MEDS: methylPREDNISolone 125 MG/2 ML VIAL IVP SCH ×3 (00:16→15:25)
[2017-11-11] MEDS: Ipratropium/Albuterol Neb 3 ML IH SCH ×7 (00:20→23:02)
[2017-11-11 03:39] LABS: Basophils % 0.1 %; Hematocrit 41.9 % (37.5-50.1); Hemoglobin 12.8 g/dL (12.9-16.9); Immature Granulocytes % 1.2 % (0-4); Lymphocytes # 0.6 K/mcL (0.6-4.6); Lymphocytes % 3.5 %; Mean Corpuscular HGB Conc 30.5 g/dL (31.6-35.5); Mean Corpuscular Hemoglobin 29.6 pg (28.0-33.3); Mean Platelet Volume 9.7 fL (9.4-12.4); Monocytes # 0.4 K/mcL (0.0-1.3); Monocytes % 2.8 %; Neutrophils # 14.6 K/mcL (1.6-8.9); Platelet Count 123 K/mcL (140-400); Red Blood Count 4.32 M/mcL (4.19-5.50); Red Cell Distribution Width 12.5 % (11.5-14.5); Segmented Neutrophils % 92.4 %
[2017-11-11 04:24] LABS: Alanine Aminotransferase 9 Units/L (7-52); Albumin 3.2 g/dL (3.5-5.7); Albumin/Globulin Ratio 1.3 (1.1-2.2); Alkaline Phosphatase 58 Units/L (34-104); Aspartate Amino Transferase 7 Units/L (13-39); BUN/Creatinine Ratio 35 (6-26); Bilirubin,Total 0.7 mg/dL (0.3-1.0); Blood Urea Nitrogen 17 mg/dL (8-23); Calcium 8.8 mg/dL (8.6-10.3); Carbon Dioxide 30 mEq/L (23-29); Chloride 100 mEq/L (98-107); Chol/HDL Ratio 2.2 (0-4.9); Cholesterol 112 mg/dL (< 200); Globulin 2.5 g/dL (2.4-3.5); Glucose 200 mg/dL (70-105); HDL Cholesterol 50 mg/dL (40-59); LDL Cholesterol,Calculated 47 mg/dL (0-99); Magnesium 2.2 mg/dL (1.6-2.6); Osmolality,Calculated 297 (280-300); Potassium 4.4 mEq/L (3.5-5.1); Sodium 140 mEq/L (136-145); Total Protein 5.7 g/dL (6.4-8.9); Triglycerides 73 mg/dL (< 150); eGFR For African Americans > 60 (> 60); eGFR For Non-African Americans > 60 (> 60)
[2017-11-11] MEDS: Vancomycin 1,250 MG in D5% in Water 250 ML IVPB SCH ×2 (05:16→15:25)
[2017-11-11] MEDS: *HR* Heparin 5,000 UNIT/ML VIAL SQ SCH ×2 (05:17→17:04)
[2017-11-11 07:10] LABS: Adenovirus Not Detected (Not Detect); Bordetella Pertussis Not Detected (Not Detect); Chlamydophila pneumoniae Not Detected (Not Detect); Coronavirus 229E Not Detected (Not Detect); Coronavirus HKU1 ***DETECTED*** (Not Detect); Coronavirus NL63 Not Detected (Not Detect); Coronavirus OC43 Not Detected (Not Detect); Human Metapneumovirus Not Detected (Not Detect); Human Rhinovirus/Enterovirus Not Detected (Not Detect); Influenza A Subtype 2009 H1 Not Detected (Not Detect); Influenza A Untypeable Not Detected (Not Detect); Influenza B Not Detected (Not Detect); Mycoplasma pneumoniae Not Detected (Not Detect); Parainfluenza Virus 1 Not Detected (Not Detect); Parainfluenza Virus 2 Not Detected (Not Detect); Parainfluenza Virus 3 Not Detected (Not Detect); Parainfluenza Virus 4 Not Detected (Not Detect); Respiratory Syncytial Virus Not Detected (Not Detect)
[2017-11-11] MEDS: Diltiazem CD (24hr) 120 MG CAPSULE PO SCH (08:48)
[2017-11-11] MEDS: Furosemide 40 MG TABLET PO SCH ×2 (08:48→17:04)
[2017-11-11] MEDS: Aspirin Enteric Coated 81 MG Tablet PO SCH (08:48)
[2017-11-11] MEDS: Levofloxacin 750 MG/150 ML 750 MG/150 ML BAG IVPB SCH (08:49)
[2017-11-11] MEDS: Insulin LISPRO 300 UNITS/3 ML VIAL SQ SCH ×3 (08:50→17:03)
--- NOTE | 2017-11-11 11:01 | Internal Med Progress Note ---
Date of Encounter: 11/11/17 Time of Encounter: 10:59 - Assessment and plan (1) Healthcare-associated pneumonia Current Visit: Yes Status: Acute Assessment and plan: Continue with vancomycin and Zosyn. Follow up on cultures. Wean down oxygen as tolerated. (2) SVT (supraventricular tachycardia) Current Visit: Yes Status: Acute Assessment and plan: Likely exacerbated by pulmonary issues. Seems to be regular and sinus with rate controlled now. Cardiology is following. Echo results noted. Continue Cardizem and beta jeanmarie. (3) COPD exacerbation Current Visit: No Status: Acute Assessment and plan: Appreciate pulmonary's help. The patient is on IV steroids. Continue with nebulizers. We do not oxygen as tolerated. (4) Type 2 diabetes mellitus Current Visit: No Status: Chronic Assessment and plan: Continue insulin sliding scale. We will give 10 units of Levemir this morning given glucose being uncontrolled. This is likely exacerbated by being on steroids. continue with Accu-Cheks Qualifiers: Diabetes mellitus complication status: without complication Diabetes mellitus care home insulin use: with care home use Qualified Code(s): E11.9 - Type 2 diabetes mellitus without complications; Z79.4 - terminal gauger supervisor (current) use of insulin; Z79.4 - terminal gauger supervisor (current) use of insulin; Z79.4 - terminal gauger supervisor ( current) use of insulin; Z79.4 - terminal gauger supervisor (current) use of insulin (5) Chronic diastolic heart failure Current Visit: Yes Status: Acute Assessment and plan: Not in exacerbation. continue with lasix 40 mg BID (6) DVT prophylaxis Current Visit: Yes Status: Acute Assessment and plan: Heparin subcutaneous - Subjective Interval history: Patient was seen and examined. He is afebrile. Still requiring high oxygen needs. He was admitted one day 1 with dyspnea palpitations. He is being treated for healthcare associated pneumonia. He went into SVT multiple times requiring adenosine Lopressor as well as Cardizem. Cardiology is following him. He remains unstable. He has been afebrile. No chest pain. - Constitutional Vitals: Temp Pulse Resp BP Pulse Ox 98.1 F 78 20 121/60 93 11/11/17 07:41 11/11/17 08:40 11/11/17 10:55 11/11/17 07:41 11/11/17 10:55 General appearance: Present: cooperative, A&O X 3, pleasant, severe distress ( respiratory), answers questions appropriately Exam: GEN: NAD CVS: RRR. S1, S2, No m/r/g RESP: Diminished with coarse breath sounds ABD: Soft, NT, ND, +BS EXT: No edema. 2+ DP. No rashes NEURO: Nonfocal Internal Medicine: Result - Labs CBC & Chem 7: 11/11/17 03:07 11/11/17 03:07 Labs: Short CBC 11/11/17 Range/Units 03:07 WBC 15.8 H (4.3-11.1) K/mcL Hgb 12.8 L D (12.9-16.9) g/dL Hct 41.9 (37.5-50.1) % Plt Count 123 L (140-400) K/mcL Neutrophils # 14.6 H (1.6-8.9) K/mcL BMP 11/11/17 03:07 Sodium 140 Potassium 4.4 Chloride 100 Carbon Dioxide 30 H BUN 17 Creatinine 0.49 L Glucose 200 H Calcium 8.8 Cardiac Enzymes 11/10/17 11/10/17 Range/Units 11:42 14:44 Troponin I 0.03 0.04 H* (< 0.04) ng/mL Liver Function 11/11/17 Range/Units 03:07 Total Bilirubin 0.7 (0.3-1.0) mg/dL AST 7 L (13-39) Units/L ALT 9 (7-52) Units/L Alkaline Phosphatase 58 (34-104) Units/L Albumin 3.2 L (3.5-5.7) g/dL - ABG Interpretation ABG results: ABG ABG pH 7.27 pH Units (7.32-7.45) L 11/10/17 15:46 ABG pCO2 62 mmHg (35-45) H D 11/10/17 15:46 ABG pO2 83 mmHg (85-104) L 11/10/17 15:46 ABG O2 Saturation 94 % (95-98) L 11/10/17 15:46 PT/INR, D-dimer PT 10.6 Seconds (9.4-12.1) 11/10/17 01:55 - Impressions Impressions Echocardiogram 11/10/17 11:42 Impressions: Technically somewhat challenging due to body habitus, COPD on BIPAP. LVEF 55-60%. Mild left ventricular diastolic dysfunction. Definity echo contrast was used. RV is dilated with normal function. No significant valvular dysfunction on this study. No pulmonary hypertension. Left Ventricular Wall Motion: Rest Echo Findings All wall segments showed normal motion. Findings: Study Quality * Technically somewhat challenging due to body habitus, COPD on BIPAP. ECG Findings * Normal sinus rhythm. Left Ventricle * LVEF 55-60%. * Mild left ventricular diastolic dysfunction. * Definity echo contrast was used. * Normal LV size. * Normal appearing LV wall thickness. Right Ventricle * RV is dilated with normal function. Left Atrium * Normal left atrial size. Right Atrium * Right atrium is not well visualized. Mitral Valve * Normal mitral valve structure. * No mitral stenosis. * No mitral regurgitation. Aortic Valve * Aortic valve not well visualized. * No aortic stenosis. * No aortic regurgitation. Tricuspid Valve * No tricuspid regurgitation. * Normal tricuspid valve structure. * Estimated RA pressure is 3 mmHg. * Estimated RVSP is 14 mmHg. * No pulmonary hypertension. Pulmonic Valve * Pulmonic valve is not well visualized. * No pulmonic stenosis. * No pulmonic regurgitation. Aorta * Not well visualized. Pulmonary Artery * Pulmonary artery not well visualized. Pericardium * There is no pericardial effusion present. Interatrial Septum * No evidence of PFO by color Doppler. IVC * Normal IVC dimensions and inspiratory collapse. Consult Discharge Plan - Plan Referrals: Nataly Vera [Primary Care Provider] - 11/24/17 8:40 am
[2017-11-11] MEDS ORDERED: Insulin DETEMIR 100 UNIT/ML X5UNITS SQ ONE (11:02)
--- NOTE | 2017-11-11 11:15 | Cardiology Progress Note ---
Date of Encounter: 11/11/17 Time of Encounter: 10:40 Assessment and Plan (1) PSVT (paroxysmal supraventricular tachycardia) Current Visit: Yes Status: Acute PSVT in the setting of acute on chronic respiratory insufficiency. Likely acute exacerbation of COPD and possible pneumonia as well. Patient demonstrated similar findings in 2016, at which time he had SVT in the setting of similar pulmonary issues. Recommend Cardizem CD 120 mg daily. Recommend aspirin for primary prevention. Hopefully, he will have less SVT as pulmonary status improves. No further episodes of SVT noted per telemetry review. TTE 11/10/17: EF 55-60%, no PH, no significant valvular dysfunction, normal wall motion No further inpatient testing recommend from Cardiology standpoint. Cardiology will sign-off, will coordinate appt with Dr. Moody Hannon in the outpatient setting. Discussion w patient/family: The assessment and plan as outlined above was discussed with the patient and/or family members who expressed understanding and agreement. All questions were answered. Thank you for involving us in the care of your patient. Please call with any questions. The patient was discussed and reviewed with Dr. Moody Hannon; Cardiology will sign-off, will coordinate appt in the outpatient setting. Subjective Principal diagnosis: SVT Interval history: Seen and examined. Denies palpitations, chest pain, dizziness, or any other symptoms overnight. Reports breathing has improved since admission. Objective Vital Signs, Last 4 Hours Temp Pulse Resp BP Pulse Ox 11/11/17 10:55 20 93 11/11/17 08:40 78 11/11/17 07:41 98.1 F 84 121/60 93 General: Conversant HEENT: Atraumatic, Normocephaly Cardiac: Reg Rate and Rhythm, Normal S1 and S2 Lungs: Other (Coarse breath sounds throughout, decreased bilaterally. ) Neuro: Alert and responsive Abdomen: Soft Skin: No rashes noted on visualized skin Musculoskeletal: No Chest Wall Tenderness Extremities: Other (discolored bilateral LE) Results 11/11/17 03:07 11/11/17 03:07 Lab Results 11/10/17 11/10/17 11/11/17 11:42 14:44 03:07 WBC 15.8 H Hgb 12.8 L D Hct 41.9 Plt Count 123 L Sodium Potassium Chloride Carbon Dioxide BUN Creatinine Glucose Calcium Magnesium Total Bilirubin AST ALT Alkaline Phosphatase Troponin I 0.03 0.04 H* 11/11/17 03:07 WBC Hgb Hct Plt Count Sodium 140 Potassium 4.4 Chloride 100 Carbon Dioxide 30 H BUN 17 Creatinine 0.49 L Glucose 200 H Calcium 8.8 Magnesium 2.2 Total Bilirubin 0.7 AST 7 L ALT 9 Alkaline Phosphatase 58 Troponin I Active Medications Acetaminophen (Tylenol) 650 mg PO Q6HR PRN PRN Reason: Mild Pain/Fever Stop: 05/12/18 05:41 Albuterol/Ipratropium (Duoneb) 3 ml IH [id number] JANINE Stop: 05/12/18 12:01 Last Admin: 11/11/17 10:55 Dose: 3 ml Aspirin (Aspirin Ec) 81 mg PO DAILY JANINE Stop: 05/13/18 09:01 Last Admin: 11/11/17 08:48 Dose: 81 mg Atorvastatin Calcium (Lipitor) 80 mg PO HS JANINE Stop: 05/12/18 21:01 Last Admin: 11/10/17 20:45 Dose: 80 mg Dextrose/Water (Dextrose 50% (Syg)) 25 ml IVP AD PRN PRN Reason: Hypoglycemia Stop: 05/12/18 05:41 Diltiazem HCl (Cardizem Cd) 120 mg PO DAILY JAINNE Stop: 05/12/18 11:46 Last Admin: 11/11/17 08:48 Dose: 120 mg Furosemide (Lasix) 40 mg PO BIDDIURETIC JANINE Stop: 05/12/18 17:01 Last Admin: 11/11/17 08:48 Dose: 40 mg Glucagon (Glucagen) 1 mg IM ONCE PRN PRN Reason: Hypoglycemia Stop: 05/12/18 05:41 Glucose (Gluctose) 15 gm PO ONCE PRN PRN Reason: Hypoglycemia Stop: 05/12/18 05:41 Glucose (Gluctose) 30 gm PO ONCE PRN PRN Reason: Hypoglycemia Stop: 05/12/18 05:41 Lisinopril/HCTZ (Prinzide 10-12.5) 1 each PO DAILY JANINE Stop: 05/13/18 09:01 Last Admin: 11/11/17 08:48 Dose: 1 each Heparin Sodium (Porcine) (Heparin) 5,000 unit SQ Q12HR JANINE Stop: 05/12/18 06:01 Last Admin: 11/11/17 05:17 Dose: 5,000 unit Dextrose (Dextrose 5%) 1,000 mls @ 100 mls/hr IVC .Q10H PRN PRN Reason: HYPOGLYCEMIA Stop: 05/12/18 05:41 Levofloxacin/Dextrose (Levaquin Premix 750mg/150 Ml) 750 mg in 150 mls @ 100 mls/hr IVPB Q24H JANINE PRN Reason: Protocol Stop: 05/13/18 09:01 Last Admin: 11/11/17 08:49 Dose: 100 mls/hr Piperacillin Sod/Tazobactam (Sod 3.375 gm/ Sodium Chloride) 100 mls @ 25 mls/ hr IVPB Q8HR JANINE Stop: 05/12/18 08:01 Last Admin: 11/11/17 08:48 Dose: 25 mls/hr Vancomycin HCl 1,250 mg/ (Dextrose) 250 mls @ 166.667 mls/hr IVPB Q12H [facility] Stop: 05/12/18 15:01 Last Infusion: 11/11/17 08:46 Dose: Infused Insulin Human Lispro (Humalog) 0 units SQ TIDAC JANINE PRN Reason: Protocol Stop: 05/12/18 07:31 Last Admin: 11/11/17 08:50 Dose: 8 units Levalbuterol HCl (Xopenex) 1.25 mg IH [id number] PRN PRN Reason: Shortness Of Breath/Wheezing Stop: 05/12/18 08:01 Methylprednisolone (Solu-Medrol) 60 mg IVP Q8HR [facility] Stop: 05/12/18 16:01 Last Admin: 11/11/17 08:48 Dose: 60 mg Metoprolol Tartrate (Lopressor) 50 mg PO BID [facility] Stop: 05/12/18 21:01 Last Admin: 11/11/17 08:48 Dose: 50 mg Naloxone HCl (Narcan) 0.4 mg IVP Q2MIN PRN PRN Reason: SEE COMMENTS Stop: 05/12/18 05:41 - Imaging and Cardiology Echo: report reviewed Other Results: 12 hour tele: avg HR=78 SR. No event noted. - EKG Interpretation EKG results cardiology: personally reviewed Consult Discharge Plan - Plan Referrals: Nataly Vera [Primary Care Provider] - 11/24/17 8:40 am
--- NOTE | 2017-11-11 11:38 | Pulmonology Progress Note ---
Date of Encounter: 11/12/17 Time of Encounter: 11:40 Assessment and Plan (1) Acute and chronic respiratory failure with hypoxia Current Visit: No Status: Acute Secondary COPD exacerbation and pneumonia to continue current management will need to Keep sats above 88% (2) Acute on chronic respiratory failure with hypercapnia Current Visit: No Status: Acute Patient is off BIPAP/AVAPS will need NIV at Night will continue the current settings of AVAPS (3) Acute exacerbation of chronic obstructive airways disease Current Visit: No Status: Acute Patient is off BIPAP sitting in chair symptoms lot better than yesterday to continue the current bronchodilator regimen and antibiotics and steroids will need BIPAP /AVAPS tonight (4) Pneumonia Current Visit: Yes Status: Acute Patient has Jernigan Virus positive with mostly likely secondary bacterial pneumonia to continue the current regimen of antibiotics Qualifiers: Pneumonia type: due to unspecified organism Laterality: left Lung location: lower lobe of lung Qualified Code(s): J18.1 - Lobar pneumonia, unspecified organism (5) SVT (supraventricular tachycardia) Current Visit: Yes Status: Acute Management per Cardiology . Subjective Principal diagnosis: SVT Interval history: Patient is doing lot better sitting in the chair watching TV with Oxy mask shortness of breadth at baseline with some cough and shortness of breadth denies any chest pain or tightness or palpitations here for follow up Objective PUL Vital signs: Last Vital Signs Temp 98.2 F 11/11/17 11:11 Pulse 72 11/11/17 11:11 Resp 18 11/11/17 11:11 BP 92/46 11/11/17 11:11 Pulse Ox 98 11/11/17 11:11 Effort: mildly labored Auscultation: bilateral: wheezes Results - Laboratory Findings CBC and BMP: 11/12/17 05:11 11/12/17 05:11 ABG ABG pH 7.27 pH Units (7.32-7.45) L 11/10/17 15:46 ABG pCO2 62 mmHg (35-45) H D 11/10/17 15:46 ABG pO2 83 mmHg (85-104) L 11/10/17 15:46 ABG O2 Saturation 94 % (95-98) L 11/10/17 15:46 PT/INR, D-dimer PT 10.6 Seconds (9.4-12.1) 11/10/17 01:55 Abnormal lab findings: Abnormal lab results WBC 15.8 K/mcL (4.3-11.1) H 11/11/17 03:07 Hgb 12.8 g/dL (12.9-16.9) L D 11/11/17 03:07 MCHC 30.5 g/dL (31.6-35.5) L 11/11/17 03:07 Plt Count 123 K/mcL (140-400) L 11/11/17 03:07 Neutrophils # 14.6 K/mcL (1.6-8.9) H 11/11/17 03:07 Hyposegmented Neuts Present (Not Present) A 11/10/17 01:55 Reactive Lymphocytes Present (Not Present) A 11/10/17 01:55 Smudge Cells Present (Not Present) A 11/10/17 01:55 ABG pH 7.27 pH Units (7.32-7.45) L 11/10/17 15:46 ABG pCO2 62 mmHg (35-45) H D 11/10/17 15:46 ABG pO2 83 mmHg (85-104) L 11/10/17 15:46 ABG HCO3 28 mEq/L (21-27) H 11/10/17 15:46 ABG Total CO2 30 mEq/L (20-26) H 11/10/17 15:46 ABG O2 Saturation 94 % (95-98) L 11/10/17 15:46 Carbon Dioxide 30 mEq/L (23-29) H 11/11/17 03:07 Creatinine 0.49 mg/dL (0.70-1.30) L 11/11/17 03:07 BUN/Creatinine Ratio 35 (6-26) H 11/11/17 03:07 Glucose 200 mg/dL (70-105) H 11/11/17 03:07 POC Glucose 377 (58-89) H 11/10/17 20:11 AST 7 Units/L (13-39) L 11/11/17 03:07 Troponin I 0.04 ng/mL (< 0.04) H* 11/10/17 14:44 Serum Total Protein 5.7 g/dL (6.4-8.9) L 11/11/17 03:07 Albumin 3.2 g/dL (3.5-5.7) L 11/11/17 03:07 Coronavirus HKU1 (PCR) DETECTED (Not Detect) A 11/11/17 04:30 - Clinical Findings Intake & Output: Intake & Output 11/10/17 11/11/17 11/11/17 23:59 07:59 15:59 Intake Total 1430 / 1430 350 / 350 Output Total 900 / 900 1600 / 1600 2225 / 2225 Balance 530 / 530 -1600 / -1600 -1875 / -1875 Consult Discharge Plan - Plan Referrals: Nataly Vera [Primary Care Provider] - 11/24/17 8:40 am
--- NOTE | 2017-11-11 17:07 | Electrocardiograph Report ---
[address] [address] Test Date: 2017-11-10 Pat Name: Armen Miller Department: 110 Room: 05 Gender: M Order Processing Clerk: : 1955 Requested By: Lincoln Cohen Order Number: [id number] Reading MD: Moody Hannon Measurements Intervals [place] Rate: 169 P: IN: 0 QRS: 53 QRSD: 94 T: 0 QT: 153 QTc: 245 Interpretive Statements SUPRAVENTRICULAR TACHYCARDIA NONSPECIFIC ST & T-WAVE ABNORMALITY ABNORMAL RHYTHM ECG Electronically Signed On 11-11-2017 17:05:52 EST by Moody Hannon
[2017-11-12] MEDS: methylPREDNISolone 125 MG/2 ML VIAL IVP SCH ×2 (00:13→08:34)
[2017-11-12] MEDS: Ipratropium/Albuterol Neb 3 ML IH SCH ×6 (04:41→23:24)
[2017-11-12 05:31] LABS: Basophils % 0.1 %; Hematocrit 40.3 % (37.5-50.1); Hemoglobin 12.5 g/dL (12.9-16.9); Immature Granulocytes % 1.4 % (0-4); Lymphocytes # 0.3 K/mcL (0.6-4.6); Lymphocytes % 2.3 %; Mean Corpuscular Hemoglobin 29.8 pg (28.0-33.3); Mean Corpuscular Volume 96.2 fL (83.0-100.0); Mean Platelet Volume 9.6 fL (9.4-12.4); Monocytes # 0.7 K/mcL (0.0-1.3); Monocytes % 4.3 %; Neutrophils # 13.7 K/mcL (1.6-8.9); Platelet Count 138 K/mcL (140-400); Red Blood Count 4.19 M/mcL (4.19-5.50); Red Cell Distribution Width 12.3 % (11.5-14.5); Segmented Neutrophils % 91.9 %
[2017-11-12] MEDS ORDERED: Vancomycin 1,750 MG in D5% in Water 500 ML IVPB ONE (06:02)
[2017-11-12 06:16] LABS: BUN/Creatinine Ratio 39 (6-26); Blood Urea Nitrogen 16 mg/dL (8-23); Calcium 8.6 mg/dL (8.6-10.3); Carbon Dioxide 41 mEq/L (23-29); Chloride 93 mEq/L (98-107); Glucose 300 mg/dL (70-105); Osmolality,Calculated 302 (280-300); Potassium 3.7 mEq/L (3.5-5.1); Sodium 140 mEq/L (136-145); eGFR For African Americans > 60 (> 60); eGFR For Non-African Americans > 60 (> 60)
[2017-11-12] MEDS: *HR* Heparin 5,000 UNIT/ML VIAL SQ SCH (06:35)
[2017-11-12 06:53] LABS: ABG Base Excess 13 mEq/L (-2 to 3); ABG HCO3 42 mEq/L (21-27); ABG Oxygen Saturation 97 % (95-98); ABG PCO2 75 mmHg (35-45); ABG PH 7.36 pH Units (7.32-7.45); ABG PO2 104 mmHg (85-104); ABG TCO2 44 mEq/L (20-26)
[2017-11-12] MEDS: Aspirin Enteric Coated 81 MG Tablet PO SCH (08:34)
[2017-11-12] MEDS: Diltiazem CD (24hr) 120 MG CAPSULE PO SCH (08:34)
[2017-11-12] MEDS: Furosemide 40 MG TABLET PO SCH (08:34)
[2017-11-12] MEDS: Levofloxacin 750 MG/150 ML 750 MG/150 ML BAG IVPB SCH (08:35)
[2017-11-12] MEDS: Insulin LISPRO 300 UNITS/3 ML VIAL SQ SCH ×3 (08:35→17:00)
[2017-11-12] MEDS ORDERED: Insulin DETEMIR 100 UNIT/ML X5UNITS SQ SCH (10:00)
--- NOTE | 2017-11-12 10:02 | Internal Med Progress Note ---
Date of Encounter: 11/12/17 Time of Encounter: 10:00 - Assessment and plan (1) COPD exacerbation Current Visit: No Status: Acute Assessment and plan: Appreciate pulmonary's help. The patient is on IV steroids. Wean down to 40 mg IV every 8 hours from 60 mg IV every 8 hours. Continue with nebulizers. ABG with CO2 retention. We will put the patient on BiPAP for 2 hours and check an ABG after. (2) Healthcare-associated pneumonia Current Visit: Yes Status: Acute Assessment and plan: Stop vancomycin and Zosyn. Continue with Levaquin. Follow up on cultures. Wean down oxygen as tolerated. (3) SVT (supraventricular tachycardia) Current Visit: Yes Status: Acute Assessment and plan: Likely exacerbated by pulmonary issues. Seems to be regular and sinus with rate controlled now. Cardiology is following. Echo results noted. Continue Cardizem and beta jeanmarie. (4) Type 2 diabetes mellitus Current Visit: No Status: Chronic Assessment and plan: Continue insulin sliding scale. Glucose uncontrolled. He uses 60 units of Levemir at night at home. We will start him on 30 units Levemir twice a day today.. This is likely exacerbated by being on steroids. continue with Accu- Cheks Qualifiers: Diabetes mellitus complication status: without complication Diabetes mellitus termination clerk insulin use: with termination clerk use Qualified Code(s): E11.9 - Type 2 diabetes mellitus without complications; Z79.4 - alf (current) use of insulin; Z79.4 - alf (current) use of insulin; Z79.4 - termite inspector ( current) use of insulin; Z79.4 - alf (current) use of insulin (5) Chronic diastolic heart failure Current Visit: Yes Status: Acute Assessment and plan: Not in exacerbation. Hold Lasix today. His CO2 is rising on the BMP. This is possibly also secondary to his respiratory issues however there is some component of contraction alkalosis as well. (6) Afib Current Visit: Yes Status: Acute Assessment and plan: Has history of paroxysmal A. fib. He is on eliquis. I will restart that. Rate controlled currently in sinus. Continue Cardizem. Continue Lopressor. Qualifiers: Atrial fibrillation type: paroxysmal Qualified Code(s): I48.0 - Paroxysmal atrial fibrillation (7) DVT prophylaxis Current Visit: Yes Status: Acute Assessment and plan: eliquis. - Subjective Interval history: Patient was seen and examined. He is asking me when he can be discharged . Says he feels well. He is afebrile. He feels more comfortable with oxygen mask on. He usually uses 3.5 L at home continuously of nasal cannula oxygen. He was admitted with dyspnea and palpitations. He is being treated for healthcare associated pneumonia. He went into SVT multiple times requiring adenosine Lopressor as well as Cardizem. Cardiology is following him. He remains unstable. He has been afebrile. No chest pain. - Constitutional Vitals: Temp Pulse Resp BP Pulse Ox 97.6 F 68 19 114/66 100 11/12/17 07:20 11/12/17 08:44 11/12/17 08:16 11/12/17 07:20 11/12/17 08:16 General appearance: Present: cooperative, A&O X 3, pleasant, severe distress ( respiratory), answers questions appropriately Exam: GEN: NAD CVS: RRR. S1, S2, No m/r/g RESP: Diminished with coarse breath sounds. Expiratory wheezes on the right lower lung garzon was sterilely ABD: Soft, NT, ND, +BS EXT: No edema. 2+ DP. No rashes NEURO: Nonfocal Internal Medicine: Result - Labs CBC & Chem 7: 11/12/17 05:11 11/12/17 05:11 Labs: Short CBC 11/12/17 Range/Units 05:11 WBC 15.0 H (4.3-11.1) K/mcL Hgb 12.5 L (12.9-16.9) g/dL Hct 40.3 (37.5-50.1) % Plt Count 138 L (140-400) K/mcL Neutrophils # 13.7 H (1.6-8.9) K/mcL BMP 11/12/17 05:11 Sodium 140 Potassium 3.7 Chloride 93 L Carbon Dioxide 41 H* BUN 16 Creatinine 0.41 L Glucose 300 H Calcium 8.6 - ABG Interpretation ABG results: ABG ABG pH 7.36 pH Units (7.32-7.45) 11/12/17 06:46 ABG pCO2 75 mmHg (35-45) H* 11/12/17 06:46 ABG pO2 104 mmHg (85-104) 11/12/17 06:46 ABG O2 Saturation 97 % (95-98) 11/12/17 06:46 PT/INR, D-dimer PT 10.6 Seconds (9.4-12.1) 11/10/17 01:55 - Impressions Impressions Echocardiogram 11/10/17 11:42 Impressions: Technically somewhat challenging due to body habitus, COPD on BIPAP. LVEF 55-60%. Mild left ventricular diastolic dysfunction. Definity echo contrast was used. RV is dilated with normal function. No significant valvular dysfunction on this study. No pulmonary hypertension. Left Ventricular Wall Motion: Rest Echo Findings All wall segments showed normal motion. Findings: Study Quality * Technically somewhat challenging due to body habitus, COPD on BIPAP. ECG Findings * Normal sinus rhythm. Left Ventricle * LVEF 55-60%. * Mild left ventricular diastolic dysfunction. * Definity echo contrast was used. * Normal LV size. * Normal appearing LV wall thickness. Right Ventricle * RV is dilated with normal function. Left Atrium * Normal left atrial size. Right Atrium * Right atrium is not well visualized. Mitral Valve * Normal mitral valve structure. * No mitral stenosis. * No mitral regurgitation. Aortic Valve * Aortic valve not well visualized. * No aortic stenosis. * No aortic regurgitation. Tricuspid Valve * No tricuspid regurgitation. * Normal tricuspid valve structure. * Estimated RA pressure is 3 mmHg. * Estimated RVSP is 14 mmHg. * No pulmonary hypertension. Pulmonic Valve * Pulmonic valve is not well visualized. * No pulmonic stenosis. * No pulmonic regurgitation. Aorta * Not well visualized. Pulmonary Artery * Pulmonary artery not well visualized. Pericardium * There is no pericardial effusion present. Interatrial Septum * No evidence of PFO by color Doppler. IVC * Normal IVC dimensions and inspiratory collapse. Consult Discharge Plan - Plan Referrals: Nataly Vera [Primary Care Provider] - 11/24/17 8:40 am
[2017-11-12] MEDS: MethylPREDNISolone 40 MG/ML VIAL IVP SCH ×3 (10:03→23:04)
[2017-11-12] MEDS: Apixaban 5 MG TABLET PO SCH ×2 (10:31→21:56)
[2017-11-12 12:01] LABS: ABG Base Excess 15 mEq/L (-2 to 3); ABG HCO3 44 mEq/L (21-27); ABG Oxygen Saturation 100 % (95-98); ABG PCO2 76 mmHg (35-45); ABG PH 7.37 pH Units (7.32-7.45); ABG PO2 218 mmHg (85-104); ABG TCO2 46 mEq/L (20-26)
[2017-11-12] MEDS ORDERED: Insulin DETEMIR 100 UNIT/ML X5UNITS SQ ONE (14:18)
[2017-11-12] MEDS: Acetaminophen 325 MG TABLET PO PRN (15:34)
[2017-11-12] MEDS ORDERED: Aminoglycoside Consult 1 EACH MC ONE (17:49)
[2017-11-12] MEDS ORDERED: Vancomycin 1,500 MG in D5% in Water 250 ML IVPB SCH (18:00)
[2017-11-12] MEDS: Insulin DETEMIR 100 UNIT/ML X5UNITS SQ SCH (21:57)
[2017-11-12] MEDS: Melatonin 3 MG TABLET PO PRN (23:03)
[2017-11-13 04:20] LABS: Basophils % 0.1 %; Hematocrit 39.1 % (37.5-50.1); Hemoglobin 12.1 g/dL (12.9-16.9); Immature Granulocytes % 3.8 % (0-4); Lymphocytes # 0.3 K/mcL (0.6-4.6); Lymphocytes % 2.3 %; Mean Corpuscular HGB Conc 30.9 g/dL (31.6-35.5); Mean Corpuscular Hemoglobin 29.5 pg (28.0-33.3); Mean Corpuscular Volume 95.4 fL (83.0-100.0); Mean Platelet Volume 9.9 fL (9.4-12.4); Monocytes # 0.7 K/mcL (0.0-1.3); Monocytes % 5.2 %; Neutrophils # 12.5 K/mcL (1.6-8.9); Nucleated Red Blood Cells 0.4 /100 WBC (0); Platelet Count 151 K/mcL (140-400); Red Cell Distribution Width 12.2 % (11.5-14.5); Segmented Neutrophils % 88.6 %
[2017-11-13] MEDS: Ipratropium/Albuterol Neb 3 ML IH SCH ×6 (04:23→23:10)
[2017-11-13 04:49] LABS: BUN/Creatinine Ratio 46 (6-26); Blood Urea Nitrogen 19 mg/dL (8-23); Calcium 8.7 mg/dL (8.6-10.3); Carbon Dioxide 43 mEq/L (23-29); Chloride 96 mEq/L (98-107); Glucose 191 mg/dL (70-105); Osmolality,Calculated 301 (280-300); Potassium 3.8 mEq/L (3.5-5.1); Sodium 142 mEq/L (136-145); eGFR For African Americans > 60 (> 60); eGFR For Non-African Americans > 60 (> 60)
[2017-11-13] MEDS: Apixaban 5 MG TABLET PO SCH ×2 (07:46→20:52)
[2017-11-13] MEDS: Diltiazem CD (24hr) 120 MG CAPSULE PO SCH (07:46)
[2017-11-13] MEDS: Aspirin Enteric Coated 81 MG Tablet PO SCH (07:46)
[2017-11-13] MEDS: MethylPREDNISolone 40 MG/ML VIAL IVP SCH ×2 (07:47→20:52)
[2017-11-13] MEDS: Levofloxacin 750 MG/150 ML 750 MG/150 ML BAG IVPB SCH (07:47)
[2017-11-13] MEDS: Acetaminophen 325 MG TABLET PO PRN (07:47)
[2017-11-13] MEDS: Insulin LISPRO 300 UNITS/3 ML VIAL SQ SCH ×5 (07:57→16:49)
[2017-11-13] MEDS: Insulin DETEMIR 100 UNIT/ML X5UNITS SQ SCH ×2 (09:12→20:52)
[2017-11-13] MEDS ORDERED: Insulin DETEMIR 100 UNIT/ML X5UNITS SQ ONE (09:20)
[2017-11-13 10:03] LABS: ABG Base Excess 16 mEq/L (-2 to 3); ABG HCO3 45 mEq/L (21-27); ABG Oxygen Saturation 99 % (95-98); ABG PCO2 77 mmHg (35-45); ABG PH 7.37 pH Units (7.32-7.45); ABG PO2 140 mmHg (85-104); ABG TCO2 47 mEq/L (20-26); Blood Gas PEEP 8 cm H2O; Blood Gas Respiration Rate 10; Blood Gas VT 600 cc
--- NOTE | 2017-11-13 12:50 | Internal Med Progress Note ---
Date of Encounter: 11/13/17 Time of Encounter: 10:00 - Assessment and plan (1) COPD exacerbation Current Visit: No Status: Acute Assessment and plan: Appreciate pulmonary's help. The patient is on IV steroids. Wean down to 40 mg IV every 12 hours from every 8 hours. Continue with nebulizers. ABG with CO2 retention. We will put the patient on BiPAP for 2 hours as this was not done yesterday. Patient is slightly has chronic CO2 retention. He is compensating well. Likely discharge tomorrow. (2) Healthcare-associated pneumonia Current Visit: Yes Status: Acute Assessment and plan: Stopped vancomycin and Zosyn. Continue with Levaquin. Follow up on cultures. Wean down oxygen as tolerated. (3) SVT (supraventricular tachycardia) Current Visit: Yes Status: Acute Assessment and plan: Likely exacerbated by pulmonary issues. Seems to be regular and sinus with rate controlled now. Cardiology is following. Echo results noted. Continue Cardizem and beta jeanmarie. (4) Type 2 diabetes mellitus Current Visit: No Status: Chronic Assessment and plan: Continue insulin sliding scale. Glucose uncontrolled. He uses 60 units of Levemir at night at home. Increase Levemir to 40 units twice a day. We will add 5 units of pre-meal boluses. This is likely exacerbated by being on steroids. continue with Accu-Cheks Qualifiers: Diabetes mellitus complication status: without complication Diabetes mellitus chcf insulin use: with exterminator use Qualified Code(s): E11.9 - Type 2 diabetes mellitus without complications; Z79.4 - technician terminal and repeater (current) use of insulin; Z79.4 - technician terminal and repeater (current) use of insulin; Z79.4 - shelter ( current) use of insulin; Z79.4 - shelter (current) use of insulin (5) Chronic diastolic heart failure Current Visit: Yes Status: Acute Assessment and plan: Not in exacerbation. Hold Lasix today. His CO2 is rising on the BMP. This is possibly also secondary to his respiratory issues however there is some component of contraction alkalosis as well. (6) Afib Current Visit: Yes Status: Acute Assessment and plan: Has history of paroxysmal A. fib. He is on eliquis. I will restart that. Rate controlled currently in sinus. Continue Cardizem. Continue Lopressor. Qualifiers: Atrial fibrillation type: paroxysmal Qualified Code(s): I48.0 - Paroxysmal atrial fibrillation (7) DVT prophylaxis Current Visit: Yes Status: Acute Assessment and plan: kadeem. - Subjective Interval history: Patient was seen and examined. Continues say that he feels well. He is afebrile. This morning he is on about 3 L of oxygen. He usually uses 3.5 L at home continuously of nasal cannula oxygen. He was admitted with dyspnea and palpitations. He is being treated for healthcare associated pneumonia. He went into SVT multiple times requiring adenosine Lopressor as well as Cardizem. Cardiology is following him. He remains unstable. He has been afebrile. No chest pain. - Constitutional Vitals: Temp Pulse Resp BP Pulse Ox 97.1 F L 72 20 109/86 98 11/13/17 11:23 11/13/17 12:18 11/13/17 12:18 11/13/17 11:23 11/13/17 12:18 General appearance: Present: cooperative, A&O X 3, pleasant, severe distress ( respiratory), answers questions appropriately Exam: GEN: NAD CVS: RRR. S1, S2, No m/r/g RESP: Diminished with coarse breath sounds. Expiratory wheezes on the right lower lung garzon was sterilely ABD: Soft, NT, ND, +BS EXT: No edema. 2+ DP. No rashes NEURO: Nonfocal Internal Medicine: Result - Labs CBC & Chem 7: 11/13/17 03:41 11/13/17 03:41 Labs: Short CBC 11/13/17 Range/Units 03:41 WBC 14.1 H (4.3-11.1) K/mcL Hgb 12.1 L (12.9-16.9) g/dL Hct 39.1 (37.5-50.1) % Plt Count 151 (140-400) K/mcL Neutrophils # 12.5 H (1.6-8.9) K/mcL BMP 11/13/17 03:41 Sodium 142 Potassium 3.8 Chloride 96 L Carbon Dioxide 43 H* BUN 19 Creatinine 0.41 L Glucose 191 H Calcium 8.7 - ABG Interpretation ABG results: ABG ABG pH 7.37 pH Units (7.32-7.45) 11/13/17 09:50 ABG pCO2 77 mmHg (35-45) H* 11/13/17 09:50 ABG pO2 140 mmHg (85-104) H 11/13/17 09:50 ABG O2 Saturation 99 % (95-98) H 11/13/17 09:50 PT/INR, D-dimer PT 10.6 Seconds (9.4-12.1) 11/10/17 01:55 Consult Discharge Plan - Plan Referrals: Nataly Vera [Primary Care Provider] - 11/24/17 8:40 am
[2017-11-13] MEDS: Melatonin 3 MG TABLET PO PRN (23:32)
[2017-11-14 01:33] LABS: Basophils % 0.2 %; Hematocrit 38.2 % (37.5-50.1); Hemoglobin 11.9 g/dL (12.9-16.9); Immature Granulocytes % 2.2 % (0-4); Lymphocytes # 0.4 K/mcL (0.6-4.6); Lymphocytes % 3.6 %; Mean Corpuscular HGB Conc 31.2 g/dL (31.6-35.5); Mean Corpuscular Hemoglobin 29.8 pg (28.0-33.3); Mean Corpuscular Volume 95.7 fL (83.0-100.0); Mean Platelet Volume 9.8 fL (9.4-12.4); Monocytes # 0.6 K/mcL (0.0-1.3); Monocytes % 5.9 %; Neutrophils # 8.6 K/mcL (1.6-8.9); Platelet Count 150 K/mcL (140-400); Red Blood Count 3.99 M/mcL (4.19-5.50); Red Cell Distribution Width 12.3 % (11.5-14.5); Segmented Neutrophils % 88.1 %
[2017-11-14 03:29] LABS: BUN/Creatinine Ratio 43 (6-26); Blood Urea Nitrogen 18 mg/dL (8-23); Calcium 8.6 mg/dL (8.6-10.3); Carbon Dioxide 44 mEq/L (23-29); Chloride 97 mEq/L (98-107); Glucose 294 mg/dL (70-105); Osmolality,Calculated 303 (280-300); Potassium 4.7 mEq/L (3.5-5.1); Sodium 140 mEq/L (136-145); eGFR For African Americans > 60 (> 60); eGFR For Non-African Americans > 60 (> 60)
[2017-11-14] MEDS: Ipratropium/Albuterol Neb 3 ML IH SCH ×4 (04:43→15:38)
[2017-11-14] MEDS: Aspirin Enteric Coated 81 MG Tablet PO SCH (08:17)
[2017-11-14] MEDS: Apixaban 5 MG TABLET PO SCH (08:17)
[2017-11-14] MEDS: Levofloxacin 750 MG/150 ML 750 MG/150 ML BAG IVPB SCH (08:17)
[2017-11-14] MEDS: MethylPREDNISolone 40 MG/ML VIAL IVP SCH (08:17)
[2017-11-14] MEDS: Diltiazem CD (24hr) 120 MG CAPSULE PO SCH (08:17)
[2017-11-14] MEDS: Insulin DETEMIR 100 UNIT/ML X5UNITS SQ SCH (08:19)
[2017-11-14] MEDS: Insulin LISPRO 300 UNITS/3 ML VIAL SQ SCH ×4 (08:28→12:04)
[2017-11-14] MEDS: Acetaminophen 325 MG TABLET PO PRN (08:28)
--- NOTE | 2017-11-14 08:50 | Discharge Summary ---
Date of Encounter: 11/14/17 Time of Encounter: 08:45 - Discharge Diagnosis (1) COPD exacerbation Priority: Primary Status: Acute (2) Healthcare-associated pneumonia Priority: Primary Status: Acute (3) SVT (supraventricular tachycardia) Priority: Primary Status: Acute (4) Type 2 diabetes mellitus Priority: Secondary Status: Chronic Qualifiers: Diabetes mellitus complication status: without complication Diabetes mellitus long term care administrator insulin use: with long term care administrator use Qualified Code(s): E11.9 - Type 2 diabetes mellitus without complications; Z79.4 - petroleum terminal plant operator (current) use of insulin; Z79.4 - intermediate (current) use of insulin; Z79.4 - petroleum terminal plant operator ( current) use of insulin; Z79.4 - petroleum terminal plant operator (current) use of insulin (5) Chronic diastolic heart failure Priority: Secondary Status: Acute (6) Afib Priority: Secondary Status: Acute Qualifiers: Atrial fibrillation type: paroxysmal Qualified Code(s): I48.0 - Paroxysmal atrial fibrillation - Discharge Medications Prescriptions: Diltiazem CD (24hr) [Cardizem CD] 120 mg PO DAILY #30 cap.er.24h Furosemide [Lasix] 40 mg PO DAILY PRN #30 tablet PRN Reason: Edema levoFLOXacin [Levaquin] 500 mg PO DAILY #5 tablet predniSONE [PredniSONE] See Taper PO TAPER #30 tablet Home Medications: Albuterol Sulfate [Ventolin Hfa] 2 puff IH Q4H PRN 04/25/16 [History] Canagliflozin [Invokana] 300 mg PO DAILY 04/25/16 [History] Fluticasone/Salmeterol [Advair 250-50 Diskus] 1 puff IH BID 04/25/16 [History] Metformin HCl [Glucophage] 1,000 mg PO BID 04/25/16 [History] Aclidinium Benedict [Tudorza Pressair] 1 puff IH DAILY 11/10/17 [History] Apixaban [Eliquis] 5 mg PO BID 11/10/17 [History] Atorvastatin [Lipitor] 80 mg PO HS 11/10/17 [History] Glimepiride [Amaryl] 1 mg PO DAILY 11/10/17 [History] Insulin Glargine,Hum.rec.anlog [Toufahad Solostar] 60 units SQ HS 11/10/17 [ History] Ipratropium/Albuterol Neb [Duoneb] 1 inh AER Q4HWA 11/10/17 [History] Lisinopril-HCTZ 10-12.5 [Prinzide 10-12.5] 1 tab PO DAILY 11/10/17 [History] Metoprolol [Lopressor] 50 mg PO BID 11/10/17 [History] Diltiazem CD (24hr) [Cardizem CD] 120 mg PO DAILY #30 cap.er.24h 11/14/17 [Rx] Furosemide [Lasix] 40 mg PO DAILY PRN #30 tablet 11/14/17 [Rx] levoFLOXacin [Levaquin] 500 mg PO DAILY #5 tablet 11/14/17 [Rx] predniSONE [PredniSONE] See Taper PO TAPER #30 tablet 11/14/17 [Rx] Allergies/Adverse Reactions: 3 Allergy/AdvReac Type Severity Reaction Status Date / Time No Known Allergies Allergy Verified 11/10/17 01:38 Date of admission: 11/10/17 05:40 Primary care physician: Nataly Vera Consults: 11/10/17 08:15 Consult to Cardiology [CONS] Stat Comment: Consulting Provider: [facility] [place] Reason for Consult: SVT Call Completed: Yes 11/10/17 11:20 Consult to Pulmonology [CONS] Routine Consulting Provider: [facility] [place] Reason for Consult: repiratory failure. Hypercarbic. Call Completed: No 11/12/17 10:22 Consult to Occupational Therapy [CONS] Routine Comment: Evaluate, develop and implement POC Reason for Consult: therapy/placement needs Consult to Physical Therapy [CONS] Routine Comment: Evaluate, develop and implement POC Reason for Consult: PT eval - Patient Status Disposition: Home, Self-Care Condition: Fair Overall status at discharge: patient is progressing back to baseline - Discharge Instructions Follow Up With: Nataly Vera [Primary Care Provider] - 11/24/17 8:40 am Moody Hannon MD [Partnered Physician] - (2 weeks) Additional Instructions: Take lasix only if you weigh >181 Ibs in the morning - Diet and Activity Activity: increase activity as tolerated, wear oxygen at all times Diet: diabetic diet, low salt diet Hospital course: Mr. Miller is a 62 year old male who presented to the ER with complaints of profound dyspnea, palpitations, and racing heartbeats. He called the squad for complaints of having significant difficulty breathing and racing heartbeats. An EKG was performed by EMS, and he was noted to have SVT with a heart rate in the 200s. He was apparently was given a dose of adenosine and brought to the ER. He slowed down and converted with adenosine. Workup in the ER revealed patient to have evidence of pneumonia and respiratory failure. He was started on antibiotics and aerosols and placed on BiPAP. He was subsequently admitted to the hospitalist service. He went into SVT again the morning of his admission and was given multiple pushes of Adenosine, Lopressor, and Cardizem before converting. He was seen by cardiology and Verapamil was switched to oral Cardizem. We treated the patient for COPD exacerbation due to healthcare associated pneumonia. We are able to get him off the BiPAP and back to his baseline oxygen needs were about 3 L nasal cannula. The patient was also being diuresed and noticed that he was going to contraction alkalosis. He seemed euvolemic the last 2 days of his stay. I told the patient to only take Lasix 40 mg at home when his weight is above 181 pounds. His dry weight is about 179 pounds he told me. He was around that at discharge. He is being discharged on Levaquin as well as a prednisone taper. He is also given a prescription for Cardizem. She will follow up with cardiology as well as his PCP. - Time Spent with Patient Total time spent providing and/or coordinating discharge services: Greater than 30 minutes - Constitutional Vitals: Temp Pulse Resp BP Pulse Ox 98.0 F 84 22 140/79 97 11/14/17 06:47 11/14/17 08:12 11/14/17 08:12 11/14/17 06:47 11/14/17 08:12 General appearance: Present: cooperative, A&O X 3, pleasant, severe distress ( respiratory), answers questions appropriately Exam: GEN: NAD CVS: RRR. S1, S2, No m/r/g RESP: Diminished with coarse breath sounds. Expiratory wheezes on the right lower lung garzon was sterilely ABD: Soft, NT, ND, +BS EXT: No edema. 2+ DP. No rashes NEURO: Nonfocal
[2017-11-14 11:05] VITALS: BP 118/78
[2017-11-14] MEDS ORDERED: Insulin DETEMIR 100 UNIT/ML X5UNITS SQ SCH (21:00)
[2017-11-15 08:47] LABS: Mycoplasma pneumoniae IgG 0.08 U/L (<=0.09)
== END 2017-11-14 17:50 | disposition home or self-care (01) | DRG 190 ==
LOC: 2NNU 01:37 → EMEROO 01:37 → 2NNU 04:30
PROVIDERS: ADMIT Pediatrics; ATTEND Internal Medicine

== ENCOUNTER 2017-11-18 21:47 | Inpatient (IN) ==
[2017-11-18] MEDS ORDERED: *HR* Metoprolol 5 MG/5 ML VIAL IVP ONE (22:02)
[2017-11-18] MEDS ORDERED: *HR* Adenosine 6 MG/2 ML VIAL IVP ONE ×2 (22:08)
--- NOTE | 2017-11-18 22:12 | Emergency Department Note ---
Disposition Clinical Impression: Healthcare-associated pneumonia, SVT (supraventricular tachycardia) Disposition: Admitted As Inpatient Condition: Fair Time of Disposition: 02:02 General Adult HPI - General Chief complaint: ED Shortness of Breath/Dyspnea Stated complaint: NIKKI Time Seen by Provider: 11/18/17 21:53 Source: patient, EMS Limitations: no limitations Nursing Notes Reviewed: Yes Vital Signs Reviewed: Yes - History of Present Illness HPI Narrative: Mr. Miller a 62yo male, presents from home via EMS with dyspnea and tachycardia. Dyspnea onset this AM, associated nonproductive cough. No fever or chest pain, no chills, no diaphoresis. SVT onset while in route approximately 5 minutes after a single albuterol nebulizer treatment. Patient was discharged from this facility 11/24 with acute exacerbation of COPD , healthcare associated pneumonia, SVT. Also history of insulin-dependent type 2 diabetes, atrial fibrillation eliquis and Cardizem, diastolic congestive heart failure. He was discharged home on Levaquin. Reportedly, on prior admission, he was also in SVT which was attributed to multiple breathing treatments. He received adenosine at that time. ROS: Positive: As above Negative: Fever, chills, nausea, vomiting, chest pains, palpitations, diaphoresis Pain Scale: 0 - Related Data Home Medications Medication Instructions Recorded Confirmed Albuterol Sulfate [Ventolin Hfa] 2 puff IH Q4H PRN 04/25/16 11/18/17 Canagliflozin [Invokana] 300 mg PO DAILY 04/25/16 11/18/17 Fluticasone/Salmeterol [Advair 1 puff IH BID 04/25/16 11/18/17 250-50 Diskus] Metformin HCl [Glucophage] 1,000 mg PO BID 04/25/16 11/18/17 Aclidinium [place] [Tudorza 1 puff IH DAILY 11/10/17 11/18/17 Pressair] Apixaban [Eliquis] 5 mg PO BID 11/10/17 11/18/17 Atorvastatin [Lipitor] 80 mg PO HS 11/10/17 11/18/17 Glimepiride [Amaryl] 1 mg PO DAILY 11/10/17 11/18/17 Insulin Glargine,Hum.rec.anlog 60 units SQ HS 11/10/17 11/18/17 [Toujeo Solostar] Ipratropium/Albuterol Neb [Duoneb] 3 ml IH Q4H 11/10/17 11/18/17 Lisinopril-HCTZ 10-12.5 [Prinzide 1 tab PO DAILY 11/10/17 11/18/17 10-12.5] Metoprolol [Lopressor] 50 mg PO BID 11/10/17 11/18/17 Previous Rx's Medication Instructions Recorded Diltiazem CD (24hr) [Cardizem CD] 120 mg PO DAILY #30 cap.er.24h 11/14/17 Furosemide [Lasix] 40 mg PO DAILY PRN #30 tablet 11/14/17 levoFLOXacin [Levaquin] 500 mg PO DAILY #5 tablet 11/14/17 predniSONE [PredniSONE] See Taper PO TAPER #30 tablet 11/14/17 Allergies Allergy/AdvReac Type Severity Reaction Status Date / Time No Known Allergies Allergy Verified 11/10/17 01:38 All systems ED: reviewed and negative except as stated. Review of Systems: As Per HPI Past Medical History - Past Medical History Medical history: Reports: asthma, CHF, COPD, diabetes, hyperlipidemia, hypertension, renal disease, SVT Surgical history: Reports: other, AICD Psychiatric history: Reports: no psych history, other - Social History Smoking Status: Former smoker Smokeless Tobacco Status: No Alcohol use: Reports: none Drug use: Reports: none Physical Exam Vital Signs Reviewed General: Patient is alert, oriented, and in acute respiratory distress-he is breathing with his mouth open and using accessory muscles. Head: atraumatic, normocephalic Eye: normal appearance, PERRL, EOMI, no scleral icterus, no conjunctival injection ENT: mucous membranes moist, normal external ear exam Neck: normal inspection, trachea midline, full ROM Chest: normal inspection, symmetric chest rise Respiratory: Poor respiratory effort. Prolonged respiratory phase. Bilateral breath sounds are diminished with coarse crackles and wheeze. Cardiovascular: Tachycardic rate and regular rhythm. No clicks, rubs, gallops, or murmors. Normal heart sounds. Abdomen: Bowel sounds present normoactive x-4 quadrants. Abdomen is soft, nondistended, and nontender. No guarding or rebound. No organomegaly noted. Musculoskeletal: Spontaneously moving all extremities. Skin: warm, dry, intact. Neuro: Alert and oriented x4. Sensation light touch intact. Psych: Patient's affect is appropriate for situation. - General Limitations: no limitations General appearance: alert, in no apparent distress Course Course Narrative: Patient presented stable SVT with narrow complex QRS to a rate in the 190s. He denies chest pain of any type. His only symptom at this time is dyspnea which was present prior to onset of his SVT. Modified vagal maneuver did not change his heart rate. 6 mg adenosine did not change his heart rate. He was converted to sinus tachycardia with 12 mg adenosine wherein his heart rate settled in the low 100s and stabilized with 5 mg IV Lopressor. Patient is hypoxic on nasal cannula. We are concerned to provide him with additional breathing treatments as the albuterol nebulizer in route kitchen into SVT and patient has history of similar reaction to breathing treatments. We will place on BiPAP to assist with his work of breathing and improve his saturations. Chest x-ray shows left basilar infiltrates improved though persistent since prior exam 10 days ago. Pulmonary physical exam is concerning for pneumonia. We will place on empiric antibodies for healthcare associated pneumonia given his recent admission to this facility. Chest X-Ray 11/18/17 22:06 IMPRESSION: Minimal left basilar infiltrates are noted with interval improvement since the prior examination dated November 10, 2017. D/ / Airam Hartmann MD / Airam Hartmann MD Interpreting Provider: Airam Hartmann MD Vital Signs Temperature 99.1 F 11/18/17 21:49 Pulse Rate 197 11/18/17 21:49 Respiratory Rate 25 11/18/17 21:49 Blood Pressure 107/76 11/18/17 21:49 O2 Sat by Pulse Oximetry 90 11/18/17 21:49 Temperature 98.8 F 11/19/17 00:53 Pulse Rate 97 11/19/17 00:53 Respiratory Rate 22 11/19/17 00:53 Blood Pressure 166/78 11/19/17 00:53 O2 Sat by Pulse Oximetry 92 11/19/17 00:53 Oxygen Delivery Oxygen Delivery Bipap Medical Decision Making - Medical Records Medical records reviewed: Yes I reviewed the patient's medical records. - Lab Data Lab results reviewed: Yes I reviewed the patient's lab results. Result diagrams: 11/18/17 22:28 11/18/17 22:23 Lab Results 11/18/17 11/18/17 11/18/17 Range/Units 22:23 22:23 22:28 WBC 27.4 H D (4.3-11.1) K/mcL RBC 4.80 (4.19-5.50) M/mcL Hgb 14.5 D (12.9-16.9) g/dL Hct 44.7 (37.5-50.1) % MCV 93.1 (83.0-100.0) fL MCH 30.2 (28.0-33.3) pg MCHC 32.4 (31.6-35.5) g/dL RDW 12.6 (11.5-14.5) % Plt Count 176 (140-400) K/mcL MPV 9.3 L (9.4-12.4) fL Immature Gran % 1.6 (0-4) % Seg Neutrophils % 85.7 % Lymphocytes % 7.3 % Monocytes % 4.9 % Eosinophils % 0.2 % Basophils % 0.3 % Neutrophils # 23.5 H (1.6-8.9) K/mcL Lymphocytes # 2.0 (0.6-4.6) K/mcL Monocytes # 1.3 (0.0-1.3) K/mcL Eosinophils # 0.1 (0.0-0.6) K/mcL Basophils # 0.1 (0.0-0.2) K/mcL Toxic Granulation Present A (Not Present) Platelet Estimate Normal (Normal) Sodium 137 (136-145) mEq/L Potassium 4.1 (3.5-5.1) mEq/L Chloride 97 L (98-107) mEq/L Carbon Dioxide 28 (23-29) mEq/L BUN 14 (8-23) mg/dL Creatinine 0.36 L (0.70-1.30) mg/dL Est GFR ( Amer) > 60 (> 60) Est GFR (Non-Af Amer) > 60 (> 60) BUN/Creatinine Ratio 39 H (6-26) Glucose 274 H (70-105) mg/dL Calculated Osmolality 294 (280-300) Calcium 9.0 (8.6-10.3) mg/dL Troponin I 0.03 (< 0.04) ng/mL B-Natriuretic Peptide (Less than 100) pg/mL 11/18/17 Range/Units 22:28 WBC (4.3-11.1) K/mcL RBC (4.19-5.50) M/mcL Hgb (12.9-16.9) g/dL Hct (37.5-50.1) % MCV (83.0-100.0) fL MCH (28.0-33.3) pg MCHC (31.6-35.5) g/dL RDW (11.5-14.5) % Plt Count (140-400) K/mcL MPV (9.4-12.4) fL Immature Gran % (0-4) % Seg Neutrophils % % Lymphocytes % % Monocytes % % Eosinophils % % Basophils % % Neutrophils # (1.6-8.9) K/mcL Lymphocytes # (0.6-4.6) K/mcL Monocytes # (0.0-1.3) K/mcL Eosinophils # (0.0-0.6) K/mcL Basophils # (0.0-0.2) K/mcL Toxic Granulation (Not Present) Platelet Estimate (Normal) Sodium (136-145) mEq/L Potassium (3.5-5.1) mEq/L Chloride (98-107) mEq/L Carbon Dioxide (23-29) mEq/L BUN (8-23) mg/dL Creatinine (0.70-1.30) mg/dL Est GFR ( Amer) (> 60) Est GFR (Non-Af Amer) (> 60) BUN/Creatinine Ratio (6-26) Glucose (70-105) mg/dL Calculated Osmolality (280-300) Calcium (8.6-10.3) mg/dL Troponin I (< 0.04) ng/mL B-Natriuretic Peptide 166 H (Less than 100) pg/mL - Radiology Data Radiology results reviewed: Yes I reviewed the patient's radiology results. - EKG Data EKG #1 EKG attestation: Yes I reviewed and interpreted this EKG. EKG results narrative: EKG #1 dated 11/18/2017 at 21:48 interpreted as supraventricular tachycardia with a rate of 194. Normal intervals. Normal axis. Nonspecific ST-T changes. EKG #2 dated 11/18/2017 at 22:03 interpreted as sinus rhythm with a rate of 99. Short VT interval of 104. Normal axis. Nonspecific ST-T changes. Compared to previous EKG dated 11/10/16 showing no acute ischemic changes comparison.
[2017-11-18] MEDS ORDERED: Furosemide 40 MG/4 ML VIAL IVP ONE (22:24)
[2017-11-18 22:36] LABS: Eosinophils % 0.2 %
[2017-11-18 22:37] LABS: Basophils # 0.1 K/mcL (0.0-0.2); Basophils % 0.3 %; Eosinophils # 0.1 K/mcL (0.0-0.6); Hematocrit 44.7 % (37.5-50.1); Hemoglobin 14.5 g/dL (12.9-16.9); Immature Granulocytes % 1.6 % (0-4); Lymphocytes % 7.3 %; Mean Corpuscular HGB Conc 32.4 g/dL (31.6-35.5); Mean Corpuscular Hemoglobin 30.2 pg (28.0-33.3); Mean Corpuscular Volume 93.1 fL (83.0-100.0); Mean Platelet Volume 9.3 fL (9.4-12.4); Monocytes # 1.3 K/mcL (0.0-1.3); Monocytes % 4.9 %; Neutrophils # 23.5 K/mcL (1.6-8.9); Platelet Count 176 K/mcL (140-400); Red Cell Distribution Width 12.6 % (11.5-14.5); Segmented Neutrophils % 85.7 %
[2017-11-18] MEDS ORDERED: methylPREDNISolone 125 MG/2 ML VIAL IVP ONE (22:48)
[2017-11-18] MEDS ORDERED: Cefepime HCl 2,000 MG in D5% in Water (Mini-Bag+) 100 ML IVPB STA (22:49)
[2017-11-18] MEDS ORDERED: Vancomycin 1,000 MG in D5% in Water 250 ML IVPB ONE (22:49)
[2017-11-18 22:53] LABS: BUN/Creatinine Ratio 39 (6-26); Blood Urea Nitrogen 14 mg/dL (8-23); Carbon Dioxide 28 mEq/L (23-29); Chloride 97 mEq/L (98-107); Glucose 274 mg/dL (70-105); Osmolality,Calculated 294 (280-300); Potassium 4.1 mEq/L (3.5-5.1); Sodium 137 mEq/L (136-145); eGFR For African Americans > 60 (> 60); eGFR For Non-African Americans > 60 (> 60)
[2017-11-18 23:03] LABS: Platelet Estimate Normal (Normal); Toxic Granulation Present (Not Present)
--- NOTE | 2017-11-18 23:10 | Emergency Department Note ---
START Narrative - START START: I examined this patient and my medical decision-making was reviewed with the Resident Physician. I agree with the documented findings, disposition and treatment plan as described except to the extent set forth below. 62-year-old male presented to the ER shortness of breath. Patient was recently admitted for COPD. Has been home for the past couple days and started having increasing shortness of breath again tonight. Embolus was called to his house. They gave him a DuoNeb treatment with albuterol and patient went into SVT from this. He has a history of the same in the past. This happened just recently on his last admission. Albuterol seems to set him off and sent him into SVT. We were able to reverse his SVT with adenosine in the ER on a second attempt with 12 mg. He tolerated it well. I did not feel currently giving him a more breathing treatments and we elected to place him on BiPAP. Patient was given steroids again. His chest x-ray shows some possible infiltrates but looks similar to his previous x-ray. Does not appear to be congestive heart failure. We will start him on vancomycin and cefepime as he was recently admitted in the hospital and this could be a hospital-acquired infection. I spoke with the hospitalist myself in regards to this admission. Critical care time 35 minutes spent in medical resuscitation of SVT.
[2017-11-18] MEDS ORDERED: Naloxone 0.4 MG/ML INJ IVP PRN (23:18)
--- NOTE | 2017-11-18 23:25 | Internal Med History&Physical ---
Date of Encounter: 11/18/17 Time of Encounter: 23:24 Assessment and Plan (1) COPD exacerbation Current visit: No Status: Acute steroids IV, IV levaquin to complete course from last admission switch duonebs to xopenex bipap overnight (2) PSVT (paroxysmal supraventricular tachycardia) Current visit: No Status: Acute avoid duonebs try xopenex instead continue rate agents (3) Chronic diastolic heart failure Current visit: No Status: Acute lasix 40mg QD for now (4) TAYLA (obstructive sleep apnea) Current visit: No Status: Chronic poorly compliant to noct cpap (5) Tobacco abuse Current visit: No Status: Chronic patch therapy (6) Afib Current visit: No Status: Acute P.afib on rate agents, eliquis Qualifiers: Atrial fibrillation type: paroxysmal Qualified Code(s): I48.0 - Paroxysmal atrial fibrillation (7) Type 2 diabetes mellitus Current visit: No Status: Chronic add ISS, hold some of oral agents, lantus continuation Qualifiers: Diabetes mellitus complication status: without complication Diabetes mellitus correction insulin use: with correction use Qualified Code(s): E11.9 - Type 2 diabetes mellitus without complications; Z79.4 - snf (current) use of insulin; Z79.4 - intermediate school teacher (current) use of insulin; Z79.4 - snf ( current) use of insulin; Z79.4 - snf (current) use of insulin Internal Medicine - H&P: HPI Chief complaint: SOB History of present illness: Mr. Miller is a 62 year old male with COPD , baseline 3.5 L NC and non-compliance to nocturnal CPAP at home, current smoker approx 1ppd who presents with recurrent COPD exacerbation. He was recently discharge on 11/14/17 for COPD and PNA, SVT that is very sensitive to duonebs. Since returning home, he has has not been doing well and has been having worsening SOB while ambulating at home. Improve with rest. He has a cough that is productive of brownish-yellow sputum. He has reduced his smoking recently due to being unwell. He developed SVT in the ED upon getting duoneb and responded to dose of 6 and then 12 mg adenosine. He was placed on bipap EKG personally reviewed with rate 194, SVT XR/XR chest 1V portable IMPRESSION: Minimal left basilar infiltrates are noted with interval improvement since the prior examination dated November 10, 2017. Past Med Surg Social Fam HX - Past Medical History Medical history: asthma, CHF, COPD, diabetes, hyperlipidemia, hypertension, renal disease, SVT Psychiatric history: no psych history, other - Past Surgical History Surgical History: other, AICD - Social History Smoking Status: Former smoker Smokeless Tobacco Status: No Alcohol use: none Drug use: none - Family History Mother Hx Family Endocrine Disorder: Yes Internal Medicine - H&P: Meds Albuterol Sulfate [Ventolin Hfa] 2 puff IH Q4H PRN 04/25/16 [History] Canagliflozin [Invokana] 300 mg PO DAILY 04/25/16 [History] Fluticasone/Salmeterol [Advair 250-50 Diskus] 1 puff IH BID 04/25/16 [History] Metformin HCl [Glucophage] 1,000 mg PO BID 04/25/16 [History] Aclidinium [place] [Tudorza Pressair] 1 puff IH DAILY 11/10/17 [History] Apixaban [Eliquis] 5 mg PO BID 11/10/17 [History] Atorvastatin [Lipitor] 80 mg PO HS 11/10/17 [History] Glimepiride [Amaryl] 1 mg PO DAILY 11/10/17 [History] Insulin Glargine,Hum.rec.anlog [Toujeo Solostar] 60 units SQ HS 11/10/17 [ History] Ipratropium/Albuterol Neb [Duoneb] 3 ml IH Q4H 11/10/17 [History] Lisinopril-HCTZ 10-12.5 [Prinzide 10-12.5] 1 tab PO DAILY 11/10/17 [History] Metoprolol [Lopressor] 50 mg PO BID 11/10/17 [History] Diltiazem CD (24hr) [Cardizem CD] 120 mg PO DAILY #30 cap.er.24h 11/14/17 [Rx] Furosemide [Lasix] 40 mg PO DAILY PRN #30 tablet 11/14/17 [Rx] levoFLOXacin [Levaquin] 500 mg PO DAILY #5 tablet 11/14/17 [Rx] predniSONE [PredniSONE] See Taper PO TAPER #30 tablet 11/14/17 [Rx] 3 Allergy/AdvReac Type Severity Reaction Status Date / Time No Known Allergies Allergy Verified 11/10/17 01:38 All Systems PM: A 10-system review of systems was performed and is negative for pertinent findings except as documented above in the HPI. Review of systems: ROS 14 point review of systems reviewed as best as possible given presentation. Pertinent positive or negative as per HPI or otherwise reviewed as negative - Constitutional Vitals: Temp Pulse Resp BP Pulse Ox 99.1 F 94 22 137/84 97 11/18/17 21:49 11/18/17 23:12 11/18/17 23:12 11/18/17 23:12 11/18/17 23:12 Exam: General - AAO x 3 Psych - Some respiratory distress Eyes - MANDY. Eye lids intact. No scleral icterus Heart - Sinus. RRR. S1 and S2 present. No added HS/murmurs appreciated. No elevated JVD appreciated. Lung - Adequate air entry b/l on bipap, No crackles/wheezes appreciated on bipap GI - Soft, non-tender. No hepatosplenomegaly/ascites. BS+ - No CVA/suprapubic tenderness or palpable bladder distension Skin - Intact. b/l LE edema, early, venous stasis changes, excoriations Internal Med - H&P Results - Labs CBC & Chem 7: 11/18/17 22:28 11/18/17 22:23
[2017-11-18] MEDS ORDERED: Dextrose Gel 15 GM/37.5 ML TUBE PO PRN ×2 (23:29)
[2017-11-18] MEDS ORDERED: D5% in Water 1,000 ML IVC PRN (23:29)
[2017-11-18] MEDS ORDERED: *HR* Dextrose 50 % in Water (Syg) 50 ML SYRINGE IVP PRN (23:29)
[2017-11-19] MEDS ORDERED: Cefepime HCl 2,000 MG in Water for inj. (sterile) 20 ML 20 ML IVPB STA (00:10)
[2017-11-19 04:55] LABS: Basophils % 0.2 %; Hematocrit 44.4 % (37.5-50.1); Immature Granulocytes % 1.2 % (0-4); Lymphocytes # 0.4 K/mcL (0.6-4.6); Lymphocytes % 1.8 %; Mean Corpuscular HGB Conc 31.5 g/dL (31.6-35.5); Mean Corpuscular Hemoglobin 29.9 pg (28.0-33.3); Mean Corpuscular Volume 94.9 fL (83.0-100.0); Mean Platelet Volume 9.2 fL (9.4-12.4); Monocytes # 0.2 K/mcL (0.0-1.3); Monocytes % 0.9 %; Neutrophils # 21.3 K/mcL (1.6-8.9); Platelet Count 158 K/mcL (140-400); Red Blood Count 4.68 M/mcL (4.19-5.50); Red Cell Distribution Width 12.6 % (11.5-14.5); Segmented Neutrophils % 95.9 %
[2017-11-19] MEDS: MethylPREDNISolone 40 MG/ML VIAL IVP SCH ×3 (05:18→18:04)
[2017-11-19 05:39] LABS: BUN/Creatinine Ratio 38 (6-26); Blood Urea Nitrogen 18 mg/dL (8-23); Carbon Dioxide 35 mEq/L (23-29); Chloride 94 mEq/L (98-107); Glucose 378 mg/dL (70-105); Osmolality,Calculated 307 (280-300); Potassium 4.7 mEq/L (3.5-5.1); Sodium 140 mEq/L (136-145); eGFR For African Americans > 60 (> 60); eGFR For Non-African Americans > 60 (> 60)
[2017-11-19 05:53] LABS: Platelet Estimate Normal (Normal)
[2017-11-19] MEDS: Insulin LISPRO 300 UNITS/3 ML VIAL SQ SCH ×4 (08:02→21:43)
[2017-11-19] MEDS: Diltiazem CD (24hr) 120 MG CAPSULE PO SCH (08:03)
[2017-11-19] MEDS: Apixaban 5 MG TABLET PO SCH ×2 (08:04→20:07)
[2017-11-19] MEDS: Nicotine 21 MG PATCH.TD24 TD SCH (08:04)
[2017-11-19] MEDS: Levofloxacin 500 MG/100 ML 500 MG/100 ML BAG IVPB SCH (08:05)
[2017-11-19] MEDS ORDERED: Insulin DETEMIR 100 UNIT/ML X5UNITS SQ ONE (08:32)
--- NOTE | 2017-11-19 10:08 | Electrocardiograph Report ---
[place] [id number] Test Date: 2017-11-18 Pat Name: Armen Miller Department: 102 Room: 2NE21 Gender: M Reimbursement Representative: : [id number] Requested By: Arnel Florence Order Number: [id number] Reading MD: Claudio Jean DO Measurements Intervals [place] Rate: 194 P: [place]: 0 QRS: 70 QRSD: 92 T: -76 QT: 212 QTc: 310 Interpretive Statements SUPRAVENTRICULAR TACHYCARDIA NONSPECIFIC ST-T CHANGES Electronically Signed On 11-19-2017 10:07:23 EST by Claudio Jean DO
--- NOTE | 2017-11-19 10:09 | Electrocardiograph Report ---
[place] [id number] Test Date: 2017-11-18 Pat Name: Armen Miller Department: 102 Room: 2NE21 Gender: M Electronic Masking System Operator: : 1955 Requested By: Licha Maguire Order Number: [id number] Reading MD: Claudio Jean DO Measurements Intervals [place] Rate: 99 P: 43 OK: 104 QRS: 54 QRSD: 101 T: 78 QT: 282 QTc: 339 Interpretive Statements SINUS RHYTHM WITH SHORT OK INTERVAL POSSIBLE LEFT ATRIAL ENLARGEMENT NONSPECIFIC ST & T-WAVE ABNORMALITY Electronically Signed On 11-19-2017 10:08:02 EST by Claudio Jean DO
[2017-11-19] MEDS: Levalbuterol Neb 0.63 MG/3 ML IH SCH ×6 (10:20→23:25)
[2017-11-19] MEDS: Canagliflozin [Invokana] 300 MG PO SCH (10:55)
[2017-11-19] MEDS: ACLIDINIUM BROMIDE IH SCH (10:55)
[2017-11-19] MEDS: Furosemide 40 MG TABLET PO SCH (10:56)
--- NOTE | 2017-11-19 17:02 | Internal Med Progress Note ---
Date of Encounter: 11/19/17 Time of Encounter: 09:10 - Assessment and plan (1) Acute and chronic respiratory failure Current Visit: Yes Status: Acute Assessment and plan: Due to resolving pneumonia and COPD/bronchitis. Qualifiers: Respiratory failure complication: hypoxia Qualified Code(s): J96.21 - Acute and chronic respiratory failure with hypoxia (2) SVT (supraventricular tachycardia) Current Visit: Yes Status: Acute Assessment and plan: Patient is noted to have episodes of SVT, especially associated with bronchodilators. Had an episode in the emergency room, converted with adenosine. Continue telemetry monitoring and Cardizem. Xopenex use instead of albuterol. (3) Acute exacerbation of chronic obstructive airways disease Current Visit: Yes Status: Acute Assessment and plan: Improving slowly. Continue IV steroids, taper down as tolerated. Continue bronchodilators, inhaled corticosteroids and supplemental oxygen. Patient does have home oxygen. (4) Afib Current Visit: Yes Status: Chronic Assessment and plan: Currently rate controlled. Continue calcium channel jeanmarie and beta jeanmarie. Long-term anticoagulation with Eliquis. Qualifiers: Atrial fibrillation type: paroxysmal Qualified Code(s): I48.0 - Paroxysmal atrial fibrillation (5) Chronic diastolic heart failure Current Visit: Yes Status: Chronic Assessment and plan: Continue oral Lasix. Weight appears to be close to his baseline dry weight. Continue beta jeanmarie, fluid restriction and urine output monitoring. Telemetry. (6) Chronic respiratory failure with hypoxia Current Visit: Yes Status: Chronic (7) TAYLA (obstructive sleep apnea) Current Visit: Yes Status: Chronic Assessment and plan: Patient noted to be noncompliant with CPAP per previous notes. He claims he began to be more compliant. Continue while in hospital. (8) Tobacco abuse Current Visit: Yes Status: Chronic Assessment and plan: Continue nicotine transdermal patch. (9) Type 2 diabetes mellitus Current Visit: Yes Status: Chronic Assessment and plan: Noted to have steroid-induced hyperglycemia. Patient also missed his bedtime dose of long-acting insulin last night. Continue Accu-Chek blood glucose monitoring with basal bolus insulin regimen. We will give him 1 dose of Levemir now. Diabetic diet. Qualifiers: Diabetes mellitus complication status: with unspecified complications Diabetes mellitus detention insulin use: with terminal clerk use Qualified Code(s) : E11.8 - Type 2 diabetes mellitus with unspecified complications; Z79.4 - terminal supervisor (current) use of insulin; Z79.4 - FDC (current) use of insulin; Z79.4 - FDC (current) use of insulin; Z79.4 - terminal supervisor (current) use of insulin (10) Pneumonia Current Visit: Yes Status: Acute Assessment and plan: Chest x-ray shows improving left basilar infiltrate since previous admission. Continue IV Levaquin for now area did supplemental oxygen and supportive care. Noted to have leukocytosis, which is currently improving and likely related to steroid use. Qualifiers: Pneumonia type: due to unspecified organism Laterality: left Lung location: lower lobe of lung Qualified Code(s): J18.1 - Lobar pneumonia, unspecified organism - Subjective Interval history: Feeling better but continues to have some shortness of breath. Patient was just discharged from our hospital about 3 days ago after being treated for similar complaints. He gives conflicting history regarding filling his recent prescriptions of antibiotics and steroids. Continues to have dry cough, intermittent shortness of breath, leg swelling. No chest or abdominal pain. - Constitutional Vitals: Temp Pulse Resp BP Pulse Ox 97.9 F 87 18 133/59 98 11/19/17 15:21 11/19/17 15:21 11/19/17 16:23 11/19/17 15:21 11/19/17 16:23 General appearance: Present: A&O X 3, obese, answers questions appropriately - Respiratory Respiratory exam: Present: decreased breath sounds (Bilateral decreased air entry), CTAB. Absent: accessory muscle use, rales, rhonchi, wheezes - Cardiovascular Cardiovascular exam: Present: irregular rhythm, +S1, +S2. Absent: diastolic murmur, gallop, rubs, systolic murmur - GI/Abdominal GI/Abdominal exam: Present: normal bowel sounds, soft (Obese), no peritoneal signs. Absent: distended, tenderness - Extremities Exam Extremities exam: Present: pedal edema (2+ pitting pedal edema in bilateral ankles and lower legs), warm, radial pulses palpable and symmetrical. Absent: calf tenderness, cyanotic - Neurological Exam Neurological exam: Present: CN II-XII intact, oriented X3, no focal deficits. Absent: pronater drift, facial droop, speech deficit Internal Medicine: Result - Labs CBC & Chem 7: 11/19/17 04:26 11/19/17 04:26 Labs: Short CBC 11/19/17 Range/Units 04:26 WBC 22.2 H (4.3-11.1) K/mcL Hgb 14.0 (12.9-16.9) g/dL Hct 44.4 (37.5-50.1) % Plt Count 158 (140-400) K/mcL Neutrophils # 21.3 H (1.6-8.9) K/mcL BMP 11/19/17 04:26 Sodium 140 Potassium 4.7 Chloride 94 L Carbon Dioxide 35 H BUN 18 Creatinine 0.47 L Glucose 378 H Calcium 9.0 Consult Discharge Plan - Plan Referrals: Nataly Vera [Primary Care Provider] -
[2017-11-19] MEDS: Acetaminophen 325 MG TABLET PO PRN (18:04)
[2017-11-19] MEDS ORDERED: Insulin DETEMIR 100 UNIT/ML X5UNITS SQ SCH (21:00)
[2017-11-19] MEDS ORDERED: Insulin LISPRO 300 UNITS/3 ML VIAL SQ ONE (21:28)
[2017-11-20] MEDS: MethylPREDNISolone 40 MG/ML VIAL IVP SCH ×5 (00:26→23:45)
[2017-11-20] MEDS: Levalbuterol Neb 0.63 MG/3 ML IH SCH ×6 (03:39→23:36)
[2017-11-20 07:15] LABS: Basophils % 0.1 %; Hematocrit 38.4 % (37.5-50.1); Immature Granulocytes % 1.8 % (0-4); Lymphocytes # 0.5 K/mcL (0.6-4.6); Lymphocytes % 2.7 %; Mean Corpuscular Hemoglobin 29.7 pg (28.0-33.3); Mean Corpuscular Volume 95.8 fL (83.0-100.0); Mean Platelet Volume 9.2 fL (9.4-12.4); Monocytes # 0.6 K/mcL (0.0-1.3); Monocytes % 3.3 %; Neutrophils # 16.8 K/mcL (1.6-8.9); Platelet Count 164 K/mcL (140-400); Red Blood Count 4.01 M/mcL (4.19-5.50); Red Cell Distribution Width 12.4 % (11.5-14.5); Segmented Neutrophils % 92.1 %
[2017-11-20 07:22] LABS: Hemoglobin 11.9 g/dL (12.9-16.9)
[2017-11-20] MEDS: ACLIDINIUM BROMIDE IH SCH (08:36)
[2017-11-20] MEDS: Canagliflozin [Invokana] 300 MG PO SCH (08:36)
[2017-11-20] MEDS: Levofloxacin 500 MG/100 ML 500 MG/100 ML BAG IVPB SCH (08:40)
[2017-11-20] MEDS: Insulin LISPRO 300 UNITS/3 ML VIAL SQ SCH ×4 (08:41→20:21)
[2017-11-20] MEDS: Furosemide 40 MG TABLET PO SCH (08:41)
[2017-11-20] MEDS: Apixaban 5 MG TABLET PO SCH ×2 (08:41→20:20)
[2017-11-20] MEDS: Diltiazem CD (24hr) 120 MG CAPSULE PO SCH (08:41)
[2017-11-20] MEDS: Nicotine 21 MG PATCH.TD24 TD SCH (08:41)
[2017-11-20] MEDS: Insulin DETEMIR 100 UNIT/ML X5UNITS SQ SCH ×2 (13:43→20:21)
--- NOTE | 2017-11-20 17:17 | Internal Med Progress Note ---
Date of Encounter: 11/20/17 Time of Encounter: 12:00 - Assessment and plan (1) Acute and chronic respiratory failure Current Visit: Yes Status: Acute Assessment and plan: Due to resolving pneumonia and COPD/bronchitis. Improving. Patient is currently requiring 3 L/m nasal cannula oxygen, does have home oxygen. Qualifiers: Respiratory failure complication: hypoxia Qualified Code(s): J96.21 - Acute and chronic respiratory failure with hypoxia (2) SVT (supraventricular tachycardia) Current Visit: Yes Status: Acute Assessment and plan: Patient is noted to have episodes of SVT, especially associated with bronchodilators. Had an episode in the emergency room, converted with adenosine. Continue telemetry monitoring and Cardizem. Xopenex use instead of albuterol. (3) Acute exacerbation of chronic obstructive airways disease Current Visit: Yes Status: Acute Assessment and plan: Improving slowly. Continue IV steroids, taper down as tolerated. Continue bronchodilators, inhaled corticosteroids and supplemental oxygen. Patient does have home oxygen. (4) Afib Current Visit: Yes Status: Chronic Assessment and plan: Currently rate controlled. Continue calcium channel jeanmarie and beta jeanmarie. Long-term anticoagulation with Eliquis. Qualifiers: Atrial fibrillation type: paroxysmal Qualified Code(s): I48.0 - Paroxysmal atrial fibrillation (5) Chronic diastolic heart failure Current Visit: Yes Status: Chronic Assessment and plan: Continue oral Lasix. Weight appears to be close to his baseline dry weight. Continue beta jeanmarie, fluid restriction and urine output monitoring. Telemetry. (6) Chronic respiratory failure with hypoxia Current Visit: Yes Status: Chronic (7) TAYLA (obstructive sleep apnea) Current Visit: Yes Status: Chronic (8) Tobacco abuse Current Visit: Yes Status: Chronic (9) Type 2 diabetes mellitus Current Visit: Yes Status: Chronic Assessment and plan: Noted to have steroid-induced hyperglycemia. Worsening blood sugars. We will increase Levemir up to twice daily, continue sliding scale insulin. Will decrease IV steroids, expect blood sugars to improve. Continue Accu-Chek blood glucose monitoring with basal bolus insulin regimen. Diabetic diet. 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 Continue IV Levaquin for now; supplemental oxygen and supportive care. Noted to have leukocytosis, which is currently improving and likely related to steroid use. Qualifiers: Pneumonia type: due to unspecified organism Laterality: left Lung location: lower lobe of lung Qualified Code(s): J18.1 - Lobar pneumonia, unspecified organism - Subjective Interval history: Feels better today. Improving shortness of breath and cough. Receiving breathing treatment. Continues to have leg swelling but improving urine output. No chest pain, palpitations, dizziness. - Constitutional Vitals: Temp Pulse Resp BP Pulse Ox 98.9 F 78 19 130/54 95 11/20/17 15:51 11/20/17 15:51 11/20/17 15:54 11/20/17 15:51 11/20/17 16:06 General appearance: Present: A&O X 3, obese, answers questions appropriately - Respiratory Respiratory exam: Present: decreased breath sounds (Improving air entry bilaterally), CTAB. Absent: accessory muscle use, rales, rhonchi, wheezes - Cardiovascular Cardiovascular exam: Present: irregular rhythm, +S1, +S2. Absent: diastolic murmur, gallop, rubs, systolic murmur - GI/Abdominal GI/Abdominal exam: Present: normal bowel sounds, soft, no peritoneal signs. Absent: distended, tenderness - Extremities Exam Extremities exam: Present: full ROM, pedal edema (2+ pitting pedal edema bilateral ankles and lower legs, minimally improved), warm, radial pulses palpable and symmetrical. Absent: calf tenderness, cyanotic - Neurological Exam Neurological exam: Present: CN II-XII intact, oriented X3, no focal deficits. Absent: pronater drift, facial droop, speech deficit Internal Medicine: Result - Labs CBC & Chem 7: 11/20/17 06:08 11/19/17 04:26 Labs: Short CBC 11/20/17 Range/Units 06:08 WBC 18.3 H (4.3-11.1) K/mcL Hgb 11.9 L D (12.9-16.9) g/dL Hct 38.4 (37.5-50.1) % Plt Count 164 (140-400) K/mcL Neutrophils # 16.8 H (1.6-8.9) K/mcL Consult Discharge Plan - Plan Referrals: Naatly Vera [Primary Care Provider] -
[2017-11-20] MEDS: Melatonin 3 MG TABLET PO PRN (22:19)
[2017-11-21] MEDS: Acetaminophen 325 MG TABLET PO PRN ×3 (03:43→21:25)
[2017-11-21] MEDS: Levalbuterol Neb 0.63 MG/3 ML IH SCH ×6 (03:54→23:59)
[2017-11-21] MEDS: MethylPREDNISolone 40 MG/ML VIAL IVP SCH ×3 (05:36→21:26)
[2017-11-21 08:11] LABS: Basophils % 0.1 %; Hematocrit 38.9 % (37.5-50.1); Hemoglobin 12.1 g/dL (12.9-16.9); Lymphocytes # 0.4 K/mcL (0.6-4.6); Lymphocytes % 2.4 %; Mean Corpuscular HGB Conc 31.1 g/dL (31.6-35.5); Mean Corpuscular Hemoglobin 29.8 pg (28.0-33.3); Mean Corpuscular Volume 95.8 fL (83.0-100.0); Mean Platelet Volume 9.4 fL (9.4-12.4); Monocytes # 0.4 K/mcL (0.0-1.3); Neutrophils # 13.8 K/mcL (1.6-8.9); Platelet Count 160 K/mcL (140-400); Red Blood Count 4.06 M/mcL (4.19-5.50); Red Cell Distribution Width 12.5 % (11.5-14.5); Segmented Neutrophils % 93.5 %
[2017-11-21] MEDS: Apixaban 5 MG TABLET PO SCH ×2 (08:18→21:25)
[2017-11-21] MEDS: Diltiazem CD (24hr) 120 MG CAPSULE PO SCH (08:18)
[2017-11-21] MEDS: Furosemide 40 MG TABLET PO SCH (08:18)
[2017-11-21] MEDS: Insulin LISPRO 300 UNITS/3 ML VIAL SQ SCH ×5 (08:18→17:27)
[2017-11-21] MEDS: Levofloxacin 500 MG/100 ML 500 MG/100 ML BAG IVPB SCH (08:19)
[2017-11-21] MEDS: Nicotine 21 MG PATCH.TD24 TD SCH (08:21)
[2017-11-21] MEDS: Insulin DETEMIR 100 UNIT/ML X5UNITS SQ SCH ×2 (08:21→21:25)
--- NOTE | 2017-11-21 16:12 | Internal Med Progress Note ---
Date of Encounter: 11/21/17 Time of Encounter: 12:00 - Assessment and plan (1) Acute and chronic respiratory failure Current Visit: Yes Status: Acute Assessment and plan: Due to resolving pneumonia and COPD/bronchitis. Improving. Patient is currently requiring 3 L/m nasal cannula oxygen, at baseline, does have home oxygen. Qualifiers: Respiratory failure complication: hypoxia Qualified Code(s): J96.21 - Acute and chronic respiratory failure with hypoxia (2) SVT (supraventricular tachycardia) Current Visit: Yes Status: Acute (3) Acute exacerbation of chronic obstructive airways disease Current Visit: Yes Status: Acute Assessment and plan: Improving slowly. Continue to taper IV steroids. Continue bronchodilators, inhaled corticosteroids and supplemental oxygen. Patient does have home oxygen. (4) Afib Current Visit: Yes Status: Chronic Assessment and plan: Currently rate controlled. Continue calcium channel jeanmarie and beta jeanmarie. Long-term anticoagulation with Eliquis. Qualifiers: Atrial fibrillation type: paroxysmal Qualified Code(s): I48.0 - Paroxysmal atrial fibrillation (5) Chronic diastolic heart failure Current Visit: Yes Status: Chronic Assessment and plan: Continue oral Lasix. Weight appears to be close to his baseline dry weight. Continue beta jeanmarie, fluid restriction and urine output monitoring. Telemetry. (6) Chronic respiratory failure with hypoxia Current Visit: Yes Status: Chronic (7) TAYLA (obstructive sleep apnea) Current Visit: Yes Status: Chronic (8) Tobacco abuse Current Visit: Yes Status: Chronic (9) Type 2 diabetes mellitus Current Visit: Yes Status: Chronic Assessment and plan: Noted to have steroid-induced hyperglycemia. Uncontrolled blood sugars. We will increase Levemir and sliding scale insulin, add nutritional insulin. Will decrease IV steroids, expect blood sugars to improve. Continue Accu-Chek blood glucose monitoring with basal bolus insulin regimen. Diabetic diet. 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 Continue IV Levaquin for now; supplemental oxygen and supportive care. Noted to have leukocytosis, which is currently improving and likely related to steroid use. Qualifiers: Pneumonia type: due to unspecified organism Laterality: left Lung location: lower lobe of lung Qualified Code(s): J18.1 - Lobar pneumonia, unspecified organism - Subjective Interval history: No new complaints. Improving breathing status. No chest pain, shortness of breath, palpitations. Continues to have leg swelling. - Constitutional Vitals: Temp Pulse Resp BP Pulse Ox 98.4 F 67 20 134/72 97 11/21/17 11:05 11/21/17 11:05 11/21/17 11:11 11/21/17 11:05 11/21/17 11:11 General appearance: Present: A&O X 3, obese, answers questions appropriately - Respiratory Respiratory exam: Present: decreased breath sounds (Bilateral decreased air entry), CTAB. Absent: accessory muscle use, rales, rhonchi, wheezes - Cardiovascular Cardiovascular exam: Present: RRR, +S1, +S2. Absent: diastolic murmur, gallop, rubs, systolic murmur - GI/Abdominal GI/Abdominal exam: Present: normal bowel sounds, soft, no peritoneal signs. Absent: distended, tenderness - Extremities Exam Extremities exam: Present: full ROM, pedal edema, warm, radial pulses palpable and symmetrical. Absent: calf tenderness, cyanotic Internal Medicine: Result - Labs CBC & Chem 7: 11/21/17 07:18 11/19/17 04:26 Labs: Short CBC 11/21/17 Range/Units 07:18 WBC 14.7 H (4.3-11.1) K/mcL Hgb 12.1 L (12.9-16.9) g/dL Hct 38.9 (37.5-50.1) % Plt Count 160 (140-400) K/mcL Neutrophils # 13.8 H (1.6-8.9) K/mcL Consult Discharge Plan - Plan Referrals: Nataly Vera [Primary Care Provider] -
[2017-11-21] MEDS ORDERED: Insulin LISPRO 300 UNITS/3 ML VIAL SQ SCH (21:00)
[2017-11-22] MEDS: Melatonin 3 MG TABLET PO PRN (00:21)
[2017-11-22] MEDS: Levalbuterol Neb 0.63 MG/3 ML IH SCH ×4 (03:28→15:29)
[2017-11-22] MEDS: Apixaban 5 MG TABLET PO SCH (08:19)
[2017-11-22] MEDS: Acetaminophen 325 MG TABLET PO PRN (08:19)
[2017-11-22] MEDS: Insulin LISPRO 300 UNITS/3 ML VIAL SQ SCH ×6 (08:19→17:02)
[2017-11-22] MEDS: Nicotine 21 MG PATCH.TD24 TD SCH (08:20)
[2017-11-22] MEDS: Furosemide 40 MG TABLET PO SCH (08:20)
[2017-11-22] MEDS: Diltiazem CD (24hr) 120 MG CAPSULE PO SCH (08:20)
[2017-11-22] MEDS ORDERED: levoFLOXacin 500 MG TABLET PO SCH (09:00)
[2017-11-22 12:06] VITALS: BP 126/44
--- NOTE | 2017-11-22 12:32 | Discharge Summary ---
Date of Encounter: 11/22/17 Time of Encounter: 10:15 - Discharge Diagnosis (1) Acute and chronic respiratory failure Priority: Primary Status: Resolved Qualifiers: Respiratory failure complication: hypoxia Qualified Code(s): J96.21 - Acute and chronic respiratory failure with hypoxia (2) SVT (supraventricular tachycardia) Priority: Primary Status: Resolved (3) Acute exacerbation of chronic obstructive airways disease Priority: Primary Status: Acute (4) Afib Priority: Secondary Status: Chronic Qualifiers: Atrial fibrillation type: paroxysmal Qualified Code(s): I48.0 - Paroxysmal atrial fibrillation (5) Chronic diastolic heart failure Priority: Secondary Status: Chronic (6) Chronic respiratory failure with hypoxia Priority: Secondary Status: Chronic (7) TAYLA (obstructive sleep apnea) Priority: Secondary Status: Chronic (8) Tobacco abuse Priority: Secondary Status: Chronic (9) Type 2 diabetes mellitus Priority: Secondary Status: Chronic Qualifiers: Diabetes mellitus complication status: with hyperglycemia Diabetes mellitus fci insulin use: with fci use Qualified Code(s): E11.65 - Type 2 diabetes mellitus with hyperglycemia; Z79.4 - continuous churn buttermaker (current) use of insulin; Z79.4 - continuous churn buttermaker (current) use of insulin; Z79.4 - continuous churn buttermaker ( current) use of insulin; Z79.4 - [facility] (current) use of insulin (10) Pneumonia Priority: Primary Status: Acute Qualifiers: Pneumonia type: due to unspecified organism Laterality: left Lung location: lower lobe of lung Qualified Code(s): J18.1 - Lobar pneumonia, unspecified organism - Discharge Medications Prescriptions: Levalbuterol Neb [Xopenex Neb] 0.63 mg IH [id number] PRN #30 vial.neb PRN Reason: Shortness Of Breath/Wheezing GuaiFENesin ER [Mucinex] 1,200 mg PO BID #10 tbbp.12hr predniSONE [PredniSONE] 60 mg PO DAILY 18 Days tablet Home Medications: Canagliflozin [Invokana] 300 mg PO DAILY 04/25/16 [History] Fluticasone/Salmeterol [Advair 250-50 Diskus] 1 puff IH BID 04/25/16 [History] Metformin HCl [Glucophage] 1,000 mg PO BID 04/25/16 [History] Aclidinium [place] [Tudorza Pressair] 1 puff IH DAILY 11/10/17 [History] Apixaban [Eliquis] 5 mg PO BID 11/10/17 [History] Atorvastatin [Lipitor] 80 mg PO HS 11/10/17 [History] Glimepiride [Amaryl] 1 mg PO DAILY 11/10/17 [History] Insulin Glargine,Hum.rec.anlog [Toujeo Solostar] 60 units SQ HS 11/10/17 [ History] Lisinopril-HCTZ 10-12.5 [Prinzide 10-12.5] 1 tab PO DAILY 11/10/17 [History] Metoprolol [Lopressor] 50 mg PO BID 11/10/17 [History] Diltiazem CD (24hr) [Cardizem CD] 120 mg PO DAILY #30 cap.er.24h 11/14/17 [Rx] Furosemide [Lasix] 40 mg PO DAILY PRN #30 tablet 11/14/17 [Rx] GuaiFENesin ER [Mucinex] 1,200 mg PO BID #10 tbbp.12hr 11/22/17 [Rx] Levalbuterol Neb [Xopenex Neb] 0.63 mg IH [id number] PRN #30 vial.neb 11/22/17 [Rx] predniSONE [PredniSONE] 60 mg PO DAILY 18 Days tablet 11/22/17 [Rx] Allergies/Adverse Reactions: 3 Allergy/AdvReac Type Severity Reaction Status Date / Time No Known Allergies Allergy Verified 11/10/17 01:38 Date of admission: 11/18/17 23:31 Primary care physician: Nataly Vera Discharging clinician: Licha Maguire Anticipated date of discharge: 11/22/17 - Patient Status Disposition: Home Health Service Condition: Fair Functional capacity at discharge: independent ambulation Overall status at discharge: patient is progressing back to baseline - Discharge Instructions Follow Up With: Nataly Vera [Primary Care Provider] - 11/29/17 9:40 am - Diet and Activity Activity: as per physical therapy, wear oxygen at all times, other (BiPAP at night) Diet: diabetic diet, low fat, low cholesterol, low salt diet (fluid restriction to 1.2L/day) Hospital course: Mr. Miller is a 62 year old male with the above medical problems, who was recently discharged from our hospital after being treated for acute CHF, Pneumonia, was admitted again with worsening shortness of breath. He was noted to be in acute exacerbation of COPD and started on IV steroids, antibiotics, bronchodilators and supplemental O2. Patient was treated with IV Levaquin during his recent admission and was discharged home with the prescription for tapering prednisone and Levaquin. He was unclear whether or not he filled these prescriptions and started taking his medications. He was noted to be noncompliant to medications and nocturnal BiPAP during his last admission. He was continued on IV Levaquin while in the hospital and completed his course. Chest x-ray at the time of admission showed improving left basilar infiltrate. He was not septic. He had leukocytosis, likely due to IV steroid use. His respiratory status gradually improved and he was able to breathe better with improving air entry. He does have bilateral pitting pedal edema, probably at baseline. He had steroid-induced hyperglycemia with uncontrolled blood sugars, insulin was uptitrated. Blood sugars are currently improving, steroids will be changed to oral prednisone. Patient is currently medically stable for discharge with a long tapering course of oral prednisone. Medication and BiPAP compliance, fluid restriction very reinforced and he verbalized understanding. He has home health services in place, continuity of care completed. - Time Spent with Patient Total time spent providing and/or coordinating discharge services: Greater than 30 minutes (45 min) - Constitutional Vitals: Temp Pulse Resp BP Pulse Ox 98.1 F 78 16 126/44 98 11/22/17 12:03 11/22/17 12:03 11/22/17 12:03 11/22/17 12:03 11/22/17 12:03 General appearance: Present: A&O X 3, obese, answers questions appropriately - Respiratory Respiratory exam: Present: decreased breath sounds (decreased air entry B/L), CTAB. Absent: accessory muscle use, rales, rhonchi, wheezes
--- NOTE | 2017-11-22 12:43 | Physician Discharge Referral ---
Home Health/Hosp Referral Info Transfer to: Home Health Attending Provider: Licha Maguire Provider in Charge Post Discharge: PCP - Diagnosis (1) Acute and chronic respiratory failure Priority: Primary Status: Resolved (2) SVT (supraventricular tachycardia) Priority: Primary Status: Resolved (3) Acute exacerbation of chronic obstructive airways disease Priority: Primary Status: Acute (4) Afib Priority: Secondary Status: Chronic (5) Chronic diastolic heart failure Priority: Secondary Status: Chronic (6) Chronic respiratory failure with hypoxia Priority: Secondary Status: Chronic (7) TAYLA (obstructive sleep apnea) Priority: Secondary Status: Chronic (8) Tobacco abuse Priority: Secondary Status: Chronic (9) Type 2 diabetes mellitus Priority: Secondary Status: Chronic (10) Pneumonia Priority: Primary Status: Acute - Respiratory Orders Oxygen / L per min (3L/min via NC) Smoking Cessation: Smoking cessation has been advised. For more information, call the [place] Tobacco Quit Line at 5-819-GXPX-NOW. - Diet/Nutrition Diet/Nutrition Orders: Cardiac, No Concentrated Sweets (diabetic) - Activity Activity Orders: Ambulate - Services Needed Following services are medically necessary services: Nursing, Physical Therapy, Occupational Therapy - Transfer Medications Prescriptions: Levalbuterol Neb [Xopenex Neb] 0.63 mg IH [id number] PRN #30 vial.neb PRN Reason: Shortness Of Breath/Wheezing GuaiFENesin ER [Mucinex] 1,200 mg PO BID #10 tbbp.12hr predniSONE [PredniSONE] 60 mg PO DAILY 18 Days tablet Home Medications: Canagliflozin [Invokana] 300 mg PO DAILY 04/25/16 [History] Fluticasone/Salmeterol [Advair 250-50 Diskus] 1 puff IH BID 04/25/16 [History] Metformin HCl [Glucophage] 1,000 mg PO BID 04/25/16 [History] Aclidinium [place] [Tudorza Pressair] 1 puff IH DAILY 11/10/17 [History] Apixaban [Eliquis] 5 mg PO BID 11/10/17 [History] Atorvastatin [Lipitor] 80 mg PO HS 11/10/17 [History] Glimepiride [Amaryl] 1 mg PO DAILY 11/10/17 [History] Insulin Glargine,Hum.rec.anlog [Torosy Solosttherese] 60 units SQ HS 11/10/17 [ History] Lisinopril-HCTZ 10-12.5 [Prinzide 10-12.5] 1 tab PO DAILY 11/10/17 [History] Metoprolol [Lopressor] 50 mg PO BID 11/10/17 [History] Diltiazem CD (24hr) [Cardizem CD] 120 mg PO DAILY #30 cap.er.24h 11/14/17 [Rx] Furosemide [Lasix] 40 mg PO DAILY PRN #30 tablet 11/14/17 [Rx] GuaiFENesin ER [Mucinex] 1,200 mg PO BID #10 tbbp.12hr 11/22/17 [Rx] Levalbuterol Neb [Xopenex Neb] 0.63 mg IH [id number] PRN #30 vial.neb 11/22/17 [Rx] predniSONE [PredniSONE] 60 mg PO DAILY 18 Days tablet 11/22/17 [Rx] Allergies/Adverse Reactions: 3 Allergy/AdvReac Type Severity Reaction Status Date / Time No Known Allergies Allergy Verified 11/10/17 01:38 Certification: Further, I certify that my clinical findings support that this patient is homebound (i.e. absences from home require considerable and taxing effort and are for medical reasons or orthodoxy services or infrequently or short duration when for other reasons) because: Homebound Reason: Leaving home requires considerable and taxing effort due to condition, Severity of cardiac or pulmonary status limits activity tolerance Attestation: My signature below is to certify that this patient is under my care and that I, or nurse practitioner, or a physician's learning support assistant working with me, has a face-to -face encounter with this patient.
[2017-11-22] MEDS: Insulin DETEMIR 100 UNIT/ML X5UNITS SQ SCH (13:52)
[2017-11-22] MEDS ORDERED: predniSONE 20 MG TABLET PO ONE (14:29)
== END 2017-11-22 17:55 | disposition home health service (06) | DRG 190 ==
LOC: 2NENU 21:47 → EMEROO 21:47 → 2NENU 23:22 → SUATTDRO 23:31
PROVIDERS: ADMIT Internal Medicine; ATTEND Internal Medicine